=== PATIENT | male | born 1945 | race Caucasian/White ===

== ENCOUNTER 2018-07-05 01:54 | Outpatient (CLI) | payer MEDICARE, SELFPAY ==
[2018-07-05 10:51] LABS: Hemoglobin A1C 6.3 % (4.5-6.2)
[2018-07-05 11:19] LABS: BUN 18 mg/dL (7-18); CREATININE 1.21 mg/dL (0.70-1.30); Calcium 9.8 mg/dL (8.5-10.1); Chloride 101 mmol/L (98-107); Cholesterol 160 mg/dL (50-200); Estimated GFR 59.12 (mL/min/1.73m2); Glucose 108 mg/dL (70-100); HDL Cholesterol 39 mg/dL (40-60); LDL CHOLESTEROL 97 mg/dL (<100); Potassium 4.7 mmol/L (3.5-5.1); Sodium 140 mmol/L (136-145); Triglyceride 152 mg/dL (30-150)
== END 2018-07-05 02:14 ==
PROVIDERS: PCP Nurse Practitioner Family; Visit Provider Nurse Practitioner Family
DX: R73.01 Impaired fasting glucose (principal); E78.5 Hyperlipidemia, unspecified; E03.9 Hypothyroidism, unspecified; R73.09 Other abnormal glucose
CPT/HCPCS: 36415; 80048; 80061; 83721; 83036; 84443

== ENCOUNTER 2019-11-03 02:27 | Outpatient (CLI) | payer MEDICARE, OTHER, SELFPAY ==
[2019-11-03 07:55] LABS: Hemoglobin A1C 6.2 % (3.8-5.6)
[2019-11-03 08:57] LABS: ALT 36 U/L (16-63); AST 27 U/L (15-37); Albumin 4.2 g/dL (3.4-5.0); Alkaline Phosphatase 93 U/L (46-116); Anion Gap 10.2 mmol/L (3-11); BUN 21 mg/dL (7-18); Bilirubin, Total 0.5 mg/dL (0.2-1.0); CO2 26.8 mmol/L (21.0-32.0); CREATININE 1.07 mg/dL (0.70-1.30); Calcium 9.2 mg/dL (8.5-10.1); Calculated LDL 83 mg/dL (<100); Chloride 104 mmol/L (98-107); Cholesterol 139 mg/dL (<200); Glucose 114 mg/dL (74-106); HDL Cholesterol 34 mg/dL (40-60); Potassium 4.6 mmol/L (3.5-5.1); Sodium 141 mmol/L (136-145); TSH (W/Ref FT4) 2.59 uIU/mL (0.36-3.74); Total Protein 7.2 g/dL (6.4-8.2); Triglyceride 111 mg/dL (<150)
== END 2019-11-03 02:47 ==
PROVIDERS: PCP Nurse Practitioner Family; Visit Provider Nurse Practitioner Family
DX: R73.01 Impaired fasting glucose (principal); E03.9 Hypothyroidism, unspecified; Z13.1 Encounter for screening for diabetes mellitus; E78.5 Hyperlipidemia, unspecified
CPT/HCPCS: 36415; 80053; 80061; 83036; 84443

== ENCOUNTER 2020-11-22 03:25 | Outpatient (CLI) | payer MEDICARE, OTHER, SELFPAY ==
--- NOTE | 2020-11-22 08:15 | DI.MRI_ITS ---
Exam(s) MR LUMBAR SPINE WO EXAM: MR LUMBAR SPINE WO CLINICAL HISTORY: chronic R sciatica worse with new R foot drop,LUMBAR RADICULOPATHY,M54.16,. TECHNIQUE: Multiplanar multisequence MRI of the Lumbar spine was performed. COMPARISON: MR MRI - LUMBAR SPINE WO CONTRAST from 11/04/2016 FINDINGS: Bones: The last intervertebral disc space is designated the L5/S1 level for the numbering purpose of this examination. The vertebral body heights are well maintained. The patient has had a prior L2 a nd L3 laminectomy. Alignment is satisfactory. The signal characteristics are unremarkable. Cord: The conus tip ends at the T12 level. It is of normal size and signal intensity. T12-L1: No disc herniations or bulges are present. No central spinal canal or neural foraminal stenos is. L1-2: No disc herniations or bulges are present. There are hypertrophic changes of the facets. The f indings cause mild narrowing of the central spinal canal. No significant neural foraminal stenosis i s present. L2-3: There is a diffuse disc bulge. No significant central spinal canal stenosis is present. There is moderately severe bilateral neural foraminal stenosis. L3-4: There is a mild diffuse disc bulge. No significant central spinal canal stenosis is seen there is moderate right neural foraminal stenosis and moderate left neural foraminal stenosis. L4-5: There is a large right paracentral disc herniation with extrusion posterior to the L4 vertebral body. It causes right lateral recess stenosis compressing the right L4 nerve root. There are hyper trophic changes of the facets and ligamentum flavum. These also contribute to cause moderately sever e central spinal canal stenosis. There is mild bilateral neural foraminal stenosis. L5-S1: No focal disc herniation is seen. Mild degenerative changes of the facets are present. No si gnificant central spinal canal stenosis is seen. No neural foraminal stenosis is present. Soft tissues: The visualized SI joints and sacrum are well maintained. The paraspinal soft tissues ar e unremarkable. IMPRESSION: 1. Large right paracentral disc herniation at L4-L5 with extrusion posterior to the L4 vertebral body . It causes right lateral recess stenosis compressing the right L4 nerve root. 2. Degenerative changes and a disc herniation at L4-L5 which also contribute to cause moderately sondra re central spinal canal stenosis and mild bilateral neural foraminal stenosis. 3. Status post L2 and L3 laminectomies. 4. Multilevel degenerative changes in the lumbar spine causing central spinal canal and neural forami nal stenosis. Please refer to the above discussion for complete details. DATA REPOSITORY:
== END 2020-11-22 03:45 ==
PROVIDERS: PCP Nurse Practitioner Family; Visit Provider Nurse Practitioner Family
DX: M47.26 Other spondylosis with radiculopathy, lumbar region; M48.061 Spinal stenosis, lumbar region without neurogenic claudication; M51.16 Intervertebral disc disorders with radiculopathy, lumbar region; M21.371 Foot drop, right foot; M54.31 Sciatica, right side
CPT/HCPCS: 72148

== ENCOUNTER 2020-12-30 01:41 | Outpatient (CLI) | payer MEDICARE, OTHER, SELFPAY ==
[2020-12-30 08:56] LABS: Calculated LDL 57 mg/dL (<100); Cholesterol 141 mg/dL (<200); HDL Cholesterol 38 mg/dL (40-60); TSH (W/Ref FT4) 1.68 uIU/mL (0.36-3.74); Triglyceride 231 mg/dL (<150)
[2020-12-30 09:28] LABS: Hemoglobin A1C 6.2 % (<5.7)
== END 2020-12-30 01:42 | disposition home or self-care (01) ==
LOC: LBO 01:42
PROVIDERS: PCP Nurse Practitioner Family; Visit Provider Nurse Practitioner Family
DX: E78.5 Hyperlipidemia, unspecified (principal); E03.9 Hypothyroidism, unspecified; R73.01 Impaired fasting glucose
CPT/HCPCS: 36415; 80061; 83036; 84443

== ENCOUNTER 2022-01-29 03:47 | Outpatient (CLI) | payer MEDICARE, OTHER, SELFPAY ==
[2022-01-29 11:10] LABS: Anion Gap 7.3 mmol/L (3-11); BUN 17 mg/dL (7-18); CO2 29.7 mmol/L (21.0-32.0); CREATININE 1.1 mg/dL (0.70-1.30); Calcium 9.6 mg/dL (8.5-10.1); Calculated LDL 79 mg/dL (<100); Chloride 100 mmol/L (98-107); Cholesterol 140 mg/dL (<200); Estimated GFR 70.44 (mL/min/1.73m2); Glucose 108 mg/dL (74-106); HDL Cholesterol 43 mg/dL (40-60); Potassium 4.8 mmol/L (3.5-5.1); Sodium 137 mmol/L (136-145); TSH (W/Ref FT4) 3.63 uIU/mL (0.36-3.74); Triglyceride 92 mg/dL (<150)
== END 2022-01-29 03:48 | disposition home or self-care (01) ==
LOC: LBO 03:47
PROVIDERS: PCP Nurse Practitioner Family; Visit Provider Nurse Practitioner Family
DX: E78.5 Hyperlipidemia, unspecified (principal); E03.9 Hypothyroidism, unspecified; Z13.1 Encounter for screening for diabetes mellitus
CPT/HCPCS: 36415; 80048; 80061; 84443

== ENCOUNTER 2023-01-08 03:30 | Outpatient (CLI) | payer MEDICARE, SELFPAY ==
[2023-01-08 14:25] LABS: Hemoglobin A1C 6.3 % (<5.7)
[2023-01-08 14:29] LABS: Anion Gap 8.9 mmol/L (3-11); BUN 23 mg/dL (7-18); CO2 26.1 mmol/L (21.0-32.0); CREATININE 1.3 mg/dL (0.70-1.30); Calcium 9.7 mg/dL (8.5-10.1); Calculated LDL 80 mg/dL (<100); Chloride 97 mmol/L (98-107); Cholesterol 149 mg/dL (<200); Estimated GFR 57.29 (mL/min/1.73m2); Glucose 100 mg/dL (74-106); HDL Cholesterol 48 mg/dL (40-60); Potassium 4.4 mmol/L (3.5-5.1); Sodium 132 mmol/L (136-145); TSH (W/Ref FT4) 3.37 uIU/mL (0.36-3.74); Triglyceride 109 mg/dL (<150)
== END 2023-01-08 03:31 | disposition home or self-care (01) ==
LOC: LBO 03:30
PROVIDERS: Nurse Practitioner Adult Health; PCP Nurse Practitioner Family; Visit Provider Nurse Practitioner Family
DX: E03.9 Hypothyroidism, unspecified (principal); E78.5 Hyperlipidemia, unspecified; R73.01 Impaired fasting glucose
CPT/HCPCS: 36415; 80048; 80061; 83036; 84443

== ENCOUNTER 2023-04-04 16:09 | Emergency (ER) | payer MEDICARE, SELFPAY ==
[2023-04-04 16:17] VITALS: BP 184/68; PULSE 89; RESP 18; TEMP 37; O2SAT 97
--- NOTE | 2023-04-04 16:45 | DI.RAD_ITS ---
Exam(s) XR CHEST 2V PA LATERAL EXAM: XR CHEST 2V PA LATERAL CLINICAL HISTORY: cough. TECHNIQUE: 2D digital imaging was performed. COMPARISON: No exams were available for comparison FINDINGS: 2 views: Heart size is normal. The mediastinum is not widened. Lungs are clear. No infiltrates nor pleural effusions. IMPRESSION: No acute pulmonary findings. DATA REPOSITORY: RADIATION DOSE DELIVERED:
--- NOTE | 2023-04-04 17:23 | W.ED.GENAD ---
Discharge Plan Disposition Patient Disposition: Home Condition: Stable Discharge Details Clinical Impression: Upper respiratory infection Primary Care Provider: Shanta Snyder ED Provider: Josh Frausto Home Meds and New Rx's Prescriptions: Continued Jznb-Lmvq-Cyrtc (bn-ZR-wsnfgn) 400-2,000 mcg tablet 1 tab PO QDAY Co Q-10 300 MG capsule 300 mg PO DAILY atorvastatin 10 mg tablet 10 mg PO DAILY Qty: 90 3RF levothyroxine 75 mcg tablet 75 mcg PO DAILY Qty: 90 3RF Rx Instructions: Take at least 30-60 minutes before first meal of the day Discharge Instructions Instructions: Upper Respiratory Infection (ED) Additional Instructions: You were seen in the emergency department for your likely viral upper respiratory infection, your lungs are clear on chest x-ray, your COVID flu and RSV swab is negative. I have provided you with an inhaler to use 2 puffs 4 times per day for symptomatic relief of shortness of breath. Take an tsut-nor-rjkcykr decongestant like Mucinex. Please use therapeutic dosing of Tylenol (acetamenophen) & Advil (ibuprofen) in an alternating fashion as follows: Take 1000mg of Tylenol every 6 hours without missing doses- that is 4 times per day. [place] in between the Tylenol dosings, take 400-600mg of Advil also on a 6 hour schedule, that is also 4 times per day. The daily maximum dosing of Tylenol is 4000mg, and the daily maximum dosing of Advil is 2400mg. This is safe to do for weeks. Please note that some common cold medications & prescription pain medications may contain acetamenophen and you need to read OTC drug labels and factor that in to maximum daily dosings. If not better by day 10 of infection I think you should call your primary care provider or present to urgent care for empiric antibiotics of Augmentin and azithromycin for 5 days each at that time. Otherwise return to the emergency department for any signs of respiratory distress. Referrals: Shanta Snyder, ELECTRIC OPERATOR [Primary Care Provider] - Discharge Data Discharge Date/Time-TO BE ENTERED AT DEPARTURE: 04/04/23 17:50 Medical Decision Making This dictation utilizes vuycy-qm-ohzf dictation software and may contain unedited grammatical errors. 77 y/o M presents to ED today with a chief complaint of URI symptoms since Wednesday, cough, congestion, mild shortness of breath worse at night that got better with repositioning. Yellow sputum, tolerating PO intake. Patient is vaccinated for Covid-19. Patients' medical history: noncontributory, otherwise healthy. Family and social history: noncontributory. Pertinent exam findings / vital signs include lungs CTA, no hypoxia, no acute distress. Differential / pathologies of concern include viral syndrome, PNA. Diagnostic studies of: -Covid/Flu antigen- negative, CXR - no PNA. Interventions of: -albuterol inhaler w/ spacer for symptomatic treatment. ED Course/Assessment/Plan: 77-year-old male seen with upper respiratory infection, no focal pneumonia on chest x-ray, COVID flu negative, in no acute distress, I discussed wohm-fez-ekmeluj cold medicines for relief and provided albuterol for symptomatic relief, recommend PCP follow-up or urgent care visit for empiric antibiotics of Augmentin and azithromycin if still sick between 10 and 14 days after onset. Findings not consistent with hypoxemic respiratory failure, pneumonia, COVID, influenza. Disposition of Upper Respiratory Infection. Patient verbalized understanding of the plan and return to ED criteria and engaged in shared decision making. Medical Records Medical records reviewed: Yes I reviewed the patient's medical records. Imaging Data Radiologic Study: Imaging: X-Ray Radiologist's impression: EXAM: XR CHEST 2V PA LATERAL CLINICAL HISTORY: cough. TECHNIQUE: 2D digital imaging was performed. COMPARISON: No exams were available for comparison FINDINGS: 2 views: Heart size is normal. The mediastinum is not widened. Lungs are clear. No infiltrates nor pleural effusions. IMPRESSION: No acute pulmonary findings. Lab Data Lab results reviewed: Yes I reviewed the patient's lab results. Labs: Covid/Flu/RSV Negative HPI General Date/Time Provider Initiated Documentation: 04/04/23 16:28. HPI Narrative: 77 year-old male presents to ED today by POV/ambulating with his with a chief complaint of cough, congestion, shortness of breath worse at night, relief with repositioning with onset Wednesday. Quality described as generalized cough symptoms, productive with yellow sputum, no radiation to profound lethargy, respiratory distress, nausea/vomiting, endorses low-grade fevers. Severity is described as moderate. Palliating factors include nothing specific attempted. Provoking factors include nothing specific. Patient not anticoagulated. Related Data Home Medications Medication Instructions Recorded Confirmed coenzyme Q10 300 mg capsule (Co 300 mg PO DAILY 11/22/12 04/04/23 Q-10) multivitamin-folic acid 400 1 tab PO QDAY 10/16/19 04/04/23 mcg-biotin 2,000 mcg tablet (Ocsy-Xsfg-Ftwbk (clcqlbnb-wzapt-pqnlow)) atorvastatin 10 mg tablet 10 mg PO DAILY #90 tab-caps 05/13/22 04/04/23 levothyroxine 75 mcg tablet 75 mcg PO DAILY #90 tab-caps 05/13/22 04/04/23 Previous Rx's Medication Instructions Recorded atorvastatin 10 mg tablet 10 mg PO DAILY #90 tab-caps 05/13/22 levothyroxine 75 mcg tablet 75 mcg PO DAILY #90 tab-caps 05/13/22 Allergies Allergy/AdvReac Type Severity Reaction Status Date / Time Sulfa (Sulfonamide AdvReac Unknown Unverified 04/04/23 16:22 Antibiotics) General Stated Complaint: RespSymp KAREN: 3 Review of Systems All systems reviewed & are unremarkable except as noted in HPI and below PFSH All Active Problems (Updated 04/04/23 @ 17:25 by OLIVIA Khan) Upper respiratory infection (Acute) Decreased range of motion of neck (Acute ~01/2023) Hyponatremia (Acute ~01/2023) Metabolic syndrome (Chronic) Hyperlipidemia, unspecified (Chronic) 06/2018 labs: good response to moderate potency statin, continue Abnormal ECG (Chronic 09/28/11) intraventricular conduction abnl on EKG Hypothyroidism (Chronic 08/20/10) DX 08/2010, HUGE IMPROVEMENT WITH RX IN ENERGY Lumbar stenosis (Chronic 12/31/16) Pain and spine note 01/16/21: Spinal stenosis of lumbar region with neurogenic claudication Migraine (Chronic 09/28/11) OCC IBUPROFEN; CAFFEINE H/A IFG (impaired fasting glucose) (Chronic) Medical History Adenoma of large intestine (12/12/11) tubular adenoma Lumbar disc herniation with radiculopathy 11/22/2020 MRI: L4-5 with L4 nerve root compression Lumbar radiculopathy, chronic Tobacco use disorder (02/15/17) Surgical History Arthroplasty of knee (11/13/05) L KNEE DREISBACH H/O laminectomy (~12/18/20) 12/18/20 L4-L5 laminectomy with right diskectomy laminectomy (03/09/17) L2-4 [facility] [place] Family History Mother , Failure to thrive at age 92. Diabetes Resolved with LSMs Father , CVA Dementia Heart disease h/o [place], CABG Myocardial infarction Stroke Sister Age: 74 Obese Social History Smoking/Tobacco Use Status: Former Tobacco Use tobacco type: cigarettes Quit Date: 04/12/71 Smoking risk assessment performed?: Yes Alcohol Intake: current Alcohol Intake frequency: holidays/special occasions only Drug use: Never Substance use type: does not use Counseling given: No Adopted: No Caregiver/Support person: No Foster care: No Household members: spouse Housing: house Number of Children: 2 number of grandchildren: 4 Communication Needs: None and Corrective Lenses Education Level: college Details: Bachelors Do you need help understanding health information?: Never current occupation: Retired Nurse Pets and animals: No Sexually active: Yes Do you think of yourself as: straight/heterosexual Current gender identity: male What is your relationship status?: How often do you talk on the phone with friends or family?: three or more times per week How often do you get together with friends or relatives?: decline to answer Do you belong to any clubs or organized social groups?: no Panel score (0-1 are the most socially isolated patients): 2 What type of physical activity do you participate in: walking, bicycling and other Details: Active during day, skiing, isometric Duration: 15-30 minutes/day Frequency: 3-4 times per week Jerrica/Yarsanism: Faith Seatbelt use: always Helmet use: Yes Drive intox or ride w/intox dedicated regional driver: No Water heater temp set <120 deg: Yes Working smoke detector in home: Yes Fire extinguisher in home: Yes Carbon monox detector in home: Yes Firearms in home: Yes Firearms unloaded and locked: Yes Do you feel safe at home: Yes Do you feel safe in your relationship?: Yes Victim of physical abuse: No Victim of emotional abuse: No Victim of sexual abuse: No Exam Narrative Exam Narrative: GENERAL APPEARANCE: Well-nourished, non-toxic, awake and alert, atraumatic, no acute distress. SKIN: Warm, pink, dry, intact, without rashes/lesions/ulcerations. HEAD: Normocephalic, atraumatic, normal hair distribution for gender/age. EYES: Pupils PERRLA, EOMs intact without nystagmus, normal conjunctiva, no exudates on lids/lashes. ENT: Nares patent, no circumoral cyanosis, no facial swelling NECK: Supple, trachea midline, painless cervical ROM. LUNGS/CHEST: Lungs CTA bilaterally- no rhonchi/rales/wheezes diffusely, non-labored respirations, normal A/P diameter, symmetrical expansion, no chest wall deformity HEART (CV/PV): Regular rate and rhythm without murmur, no peripheral edema, no JVD. ABDOMEN: Soft, non-distended, no guarding, no tenderness. MSK: Normal ROM, no swelling/deformity to bilateral UEs or LEs, moving all extremities without weakness, no cyanosis, spine midline without tenderness, normal curvature. NEURO: Mental Status AAOx4 - alert to person, place, time, events No facial droop, no forehead involvement. Motor: No focal weakness - strength 5/5 in bilateral UEs and LEs, proximal and distal, symmetric. Sensory: sensation intact to light touch globally. Gait normal: patient ambulated without ataxia into ED room. PSYCH: euthymic, cooperative, pleasant, appropriate speech Course 04/04/23 16:52 XR chest 2V PA & lateral [RAD] Stat 04/04/23 17:27 Albuterol [Ventolin Hfa] 2 puff IH DISPENSE ONE 04/04/23 18:00 Inhaler, Assist Devices [Pocket Chamber] 1 each MC DIRECTED And Covid/Flu POC neg Vital Signs Vital signs: Vital Signs Temperature 37 C 04/04/23 16:17 Pulse 89 04/04/23 16:17 Respiratory Rate 18 04/04/23 16:17 Blood Pressure 184/68 H 04/04/23 16:17 Pulse Oximetry 97 04/04/23 16:17 Temperature 37 C 04/04/23 16:17 Temperature Source Skin 04/04/23 16:17 Pulse 89 04/04/23 16:17 Respiratory Rate 18 04/04/23 16:17 Respiratory Effort Labored 04/04/23 16:26 Respiratory Depth Deep 04/04/23 16:23 Blood Pressure 184/68 H 04/04/23 16:17 Blood Pressure Position Sitting 04/04/23 16:17 Pulse Oximetry 97 04/04/23 16:17 Oxygen Delivery Method Room Air 04/04/23 16:17 Oxygen Flow Rate 0 04/04/23 16:17 Pain Level 7 04/04/23 16:17 PAWSS Have you Been Recently Intoxicated or Drunk Within the Last 30 days?: No Have you Ever Experienced Previous Episodes of Alcohol Withdrawal?: No Have you ever Experienced Withdrawal Seizures?: No Have you ever Experienced Delirium Tremens(DT)s?: No Have you ever undergone Alcohol Rehabilitation Treatment (i.e, inpt ot outpatient treatment programs)?: No Have you ever Experienced Blackouts?: No Have you ever Combined Alcohol with other Downers within the last 90 days?: No Have you ever Combined Alcohol with any other Substance of Abuse during the last 90 days?: No Positive Blood Alcohol level on Presentation? [PCS.BAL]: No Evidence of Increased Autonomic Activity (i.e. HR>120, tremor, sweating, agitation, nausea)?: No Result: 0
--- NOTE | 2023-04-04 17:46 | DI.VRAD_ITS ---
PROCEDURE INFORMATION: Exam: XR Chest Exam date and time: 04/04/2023 5:17 PM Age: 77 years old Clinical indication: Cough TECHNIQUE: Imaging protocol: Radiologic exam of the chest. Views: 2 views. COMPARISON: No relevant prior studies available. FINDINGS: Lungs: Reticular markings at the right and left lung base may represent atelectasis, scar, or developing infiltrate. There are no comparison. Pleural spaces: Unremarkable. No pleural effusion. No pneumothorax. Heart/Mediastinum: Unremarkable. No cardiomegaly. Bones/joints: Degenerative changes of the spine. IMPRESSION: Bibasilar reticular markings consistent developing infiltrate, scar, or atelectasis. Dictated and Authenticated by: Rose Casper MD. Ordering:CATHI Moreno MD
[2023-04-04] MEDS: Albuterol HFA 8 GM 60 PUFF INH IH (17:47)
[2023-04-04] MEDS: Inhaler, Assist Device 1 EACH MC (17:48)
== END 2023-04-04 17:50 | disposition home or self-care (01) ==
PROVIDERS: Emergency Provider Physician Assistant; PCP Nurse Practitioner Adult Health
DX: J06.9 Acute upper respiratory infection, unspecified (principal); Z11.52 Encounter for screening for COVID-19
CPT/HCPCS: 87426; 99283; 71046

== ENCOUNTER 2023-07-08 05:15 | Outpatient (CLI) | payer MEDICARE, SELFPAY ==
[2023-07-08 15:24] LABS: Anion Gap 9.9 mmol/L (3-11); BUN 20 mg/dL (7-18); CO2 29.1 mmol/L (21.0-32.0); CREATININE 1.1 mg/dL (0.70-1.30); Calcium 9.1 mg/dL (8.5-10.1); Chloride 100 mmol/L (98-107); Estimated GFR 69.57 (mL/min/1.73m2); Glucose 92 mg/dL (74-106); Sodium 139 mmol/L (136-145)
== END 2023-07-08 05:16 | disposition home or self-care (01) ==
PROVIDERS: PCP Nurse Practitioner Adult Health; Visit Provider Nurse Practitioner Adult Health
DX: E87.1 Hypo-osmolality and hyponatremia (principal)
CPT/HCPCS: 36415; 80048

== ENCOUNTER 2023-10-11 12:06 | Outpatient (REF) | payer MEDICARE, SELFPAY ==
[2023-10-11 12:23] LABS: Abs Immature Grans 0.04 10^3/uL (0.0-0.06); Absolute Basophil Count 0.03 10^3/uL (0.0-0.2); Absolute Eosinophil Count 0.02 10^3/uL (0.0-0.7); Absolute Lymphocyte Count 1.19 10^3/uL (1.2-3.4); Absolute Monocyte Count 1.12 10^3/uL (0.1-0.8); Absolute Neutrophil Count 7.51 10^3/uL (1.2-6.7); Basophils % 0.3 %; Eosinophils % 0.2 %; HGB 13.7 g/dL (13.5-17.5); Immature Grans % 0.4 %; MCH 31.4 pg (27.0-33.0); MCHC 35.1 % (32.0-36.0); MCV 89 fL (80-95); MPV 8.6 fL (8.0-11.0); Monocytes % 11.3 %; Neutrophils % 75.8 %; Platelet Count 293 10^3/uL (130-400); RBC 4.37 10^6/uL (4.36-5.78); RDW 12.5 % (11.8-14.1); RDW-SD 41.5 fL; WBC 9.91 10^3/uL (4.4-10.8)
[2023-10-11 12:26] LABS: ESR 29 mm/hr (0-20)
[2023-10-11 13:14] LABS: ALT 30 U/L (16-63); AST 22 U/L (15-37); Albumin 4.2 g/dL (3.4-5.0); Alkaline Phosphatase 98 U/L (46-116); Anion Gap 11.3 mmol/L (3-11); BUN 14 mg/dL (7-18); Bilirubin, Total 0.89 mg/dL (0.2-1.0); CO2 25.7 mmol/L (21.0-32.0); CREATININE 0.9 mg/dL (0.70-1.30); Calcium 9.3 mg/dL (8.5-10.1); Chloride 96 mmol/L (98-107); Estimated GFR 88.51 (mL/min/1.73m2); Glucose 99 mg/dL (74-106); Magnesium 2.1 mg/dL (1.8-2.4); Potassium 4.9 mmol/L (3.5-5.1); Sodium 133 mmol/L (136-145); TSH (W/Ref FT4) 1.97 uIU/mL (0.36-3.74); Total Protein 7.5 g/dL (6.4-8.2); Vitamin B12 532 pg/mL (193-986)
[2023-10-12 09:54] LABS: Lyme Ab w Rflx to Lyme Confirm Negative (Negative)
[2023-10-14 09:18] LABS: Anaplasma phagocytophilum Negative (Negative); B. miyamotoi PCR Negative (Negative); Babesia divergens/MO-1 Negative (Negative); Babesia duncani Negative (Negative); Babesia microti Negative (Negative); Ehrlichia chaffeensis Negative (Negative); Ehrlichia ewingii/canis Negative (Negative); Ehrlichia muris eauclairensis Negative (Negative)
== END 2023-10-11 12:07 | disposition home or self-care (01) ==
LOC: LBN 12:06
PROVIDERS: PCP Nurse Practitioner Adult Health; Visit Provider Nurse Practitioner Adult Health
DX: R53.1 Weakness (principal); R41.82 Altered mental status, unspecified; R26.89 Other abnormalities of gait and mobility
CPT/HCPCS: 80053; 85652; 87798; 82607; 83735; 84443; 85025; 86618

== ENCOUNTER 2023-10-11 13:36 | Emergency (ER) | payer MEDICARE, SELFPAY ==
[2023-10-11] VITALS (62 sets, daily range): BP systolic 126–184; BP diastolic 47–87; PULSE 52–147; RESP 11–22; TEMP 36–36.9; O2SAT 95–97
--- NOTE | 2023-10-11 13:30 | RT.EKG_ITS ---
APPROVED REPORT Exam: Resting ECG Reason for Exam: weakness Patient Location: E HR:56 bpm ECG Measurements Heart Rate 56 AXIS MD 153 P 74 QRSd 94 QRS 76 QT 417 T 51 QTc 404 Conclusion Sinus bradycardia. 56 no stemi
[2023-10-11] MEDS: Normal Saline 1,000 ML 1000 ML IV (14:23)
--- NOTE | 2023-10-11 14:43 | DI.CT_ITS ---
Exam(s) CT HEAD WO EXAM: CT HEAD WO CLINICAL HISTORY: weakness. TECHNIQUE: Imaging Protocol: Axial computed tomography images with coronal and sagittal reformatted images were created and reviewed COMPARISON: No exams were available for comparison FINDINGS: Ventricles and Extra axial spaces: Normal in size and morphology for the patient's age. Hemorrhage: None. Cerebral parenchyma: There is a large area of edema involving the right temporal lobe and right parie evelina lobe. There is effacement of the right lateral ventricle, the right temporal and occipital horns . There is a leftward midline shift of 1.2 cm.. Midline shift: None. Brainstem/Cerebellum: Normal. Calvarium: Normal. Visualized Paranasal sinuses/Mastoids: Clear. Soft Tissues: Unremarkable. IMPRESSION: 1. Large area of decreased attenuation in the right temporal and right parietal lobes with a 1.2 cm r ight to left midline shift and effacement of the sulci and the right ventricular system. Primary con cern is for an intra cranial mass such as a glial tumor or metastatic disease. Acute infarct should also be considered. An MRI of the brain without and with contrast is recommended for further evaluat ion. 2. Findings were discussed with Tim Singh at 2:50 p.m. on 10/11/2023. RADIATION DOSE DELIVERED: Total DLP DATA REPOSITORY: All CT scans at this facility are submitted to the National Radiology Data Registry (NRDR) Dose Index Registry (DIR) with the [employer] (ACR). RADIATION OPTIMIZATION: All CT scans at this facility use at least one of these dose optimization te chniques: automated exposure control; mA and/or kV adjustment per patient size (includes targeted exa ms where dose is matched to clinical indication); or iterative reconstruction.
--- NOTE | 2023-10-11 14:45 | DI.MRI_ITS ---
Exam(s) MR BRAIN WO/W EXAM: MR BRAIN WO/W CLINICAL HISTORY: weakness and abnormal CT. TECHNIQUE: Multiplanar multisequence MRI of the brain was performed. CONTRAST MATERIAL: IV Contrast: 16 ML of Dotarem contrast administered. COMPARISON: CT CT HEAD WO from 10/11/2023 FINDINGS: There is patient motion artifact. VENTRICLES AND EXTRA AXIAL SPACES: There is a face mint of the sulci and the right lateral ventricle secondary to the right mass as described below under cerebral parenchyma. HEMORRHAGE: None. CEREBRAL PARENCHYMA: There is a 7.4 AP by 5.8 transverse by 4.8 craniocaudad cm cm mass centered in t he right temporal lobe. It shows heterogeneous enhancement following contrast administration. Areas of hypointense signal are seen on the gradient images consistent with prior hemorrhage. There is a large amount of vasogenic edema surrounding the lesion. There is effacement of the adjacent sulci an d the right lateral ventricle including the temporal and occipital lobes. There is a 1.2 cm right to left midline shift. Enhancement appears to extend into the right occipital horn of the lateral vent ricle and the temporal horn of the right lateral ventricle. There are scattered foci of hyperintense signal seen in the white matter on the T2 and FLAIR images most consistent with chronic microvascula r ischemic disease. MIDLINE SHIFT: 1.2 cm right to left midline shift is present secondary to the mass. BRAINSTEM/CEREBELLUM: Normal. CALVARIUM: Normal. ENHANCEMENT: Please see under cerebral parenchyma. VISUALIZED PARANASAL SINUSES/MASTOIDS: Clear. OTHER FINDINGS: None. IMPRESSION: 1. Heterogeneously enhancing mass in the right temporal lobe with vasogenic edema and causing sulcal and ventricular effacement with a 1.2 cm right to left midline shift. 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 Metastasis or infection are considered less likely. 2. Findings were discussed with Tim Singh at 4:10 p.m. on 10/11/2023. DATA REPOSITORY:
[2023-10-11 15:05] LABS: COVID-19 PCR Negative (Negative); Influenza A PCR Negative (Negative); Influenza B PCR Negative (Negative); RSV PCR Negative (Negative)
[2023-10-11 15:07] LABS: Source Nasopharynx
--- NOTE | 2023-10-11 15:07 | W.ED.GENAD ---
Discharge Plan Discharge Details Chief Complaint: GenMedical Primary Care Provider: Shanta Snyder ED Provider: Tim Singh Home Meds and New Rx's Prescriptions: No Action Zqzr-Pnkf-Ngzdx (ph-DI-clfxot) 400-2,000 mcg tablet 1 tab PO QDAY Co Q-10 300 MG capsule 300 mg PO DAILY atorvastatin 10 mg tablet 10 mg PO DAILY Qty: 90 3RF levothyroxine 75 mcg tablet 75 mcg PO DAILY Qty: 90 3RF Rx Instructions: Take at least 30-60 minutes before first meal of the day HPI General Mode of arrival: wheelchair. Date/Time Provider Initiated Documentation: 10/11/23 13:48. Limitations to Documentation: no limitations. Information obtained by: patient and family. History of Present Illness 78 year old M presents to the emergency department with the chief complaint of General generalized weakness, difficulty urinating, described as moderate, Patient started experiencing this unknown and it has been constant. No relieving factors improve symptom(s), No exacerbating factors reported . Patient notes no other symptoms.. Patient did receive the following treatments prior to arrival, other (Acetaminophen) Related Data Home Medications Medication Instructions Recorded Confirmed coenzyme Q10 300 mg capsule (Co 300 mg PO DAILY 11/22/12 10/11/23 Q-10) multivitamin-folic acid 400 1 tab PO QDAY 10/16/19 10/11/23 mcg-biotin 2,000 mcg tablet (Neqd-Sazf-Yeaub (ycfrpfia-aqfzj-rmxmti)) atorvastatin 10 mg tablet 10 mg PO DAILY #90 tab-caps 05/17/23 10/11/23 levothyroxine 75 mcg tablet 75 mcg PO DAILY #90 tab-caps 05/17/23 10/11/23 Previous Rx's Medication Instructions Recorded atorvastatin 10 mg tablet 10 mg PO DAILY #90 tab-caps 05/17/23 levothyroxine 75 mcg tablet 75 mcg PO DAILY #90 tab-caps 05/17/23 Allergies Allergy/AdvReac Type Severity Reaction Status Date / Time Sulfa (Sulfonamide AdvReac Unknown Other (See Unverified 10/11/23 10:56 Antibiotics) Comment) General Stated Complaint: GenMedical KAREN: 3 Review of Systems Constitutional Constitutional: Denies chills, Denies fever(s) and Reports weakness Cardiovascular Cardiovascular: Denies chest pain, Denies syncope and Denies dyspnea Respiratory Respiratory: Denies dyspnea Gastrointestinal Gastrointestinal: Denies abdominal pain and Denies nausea Genitourinary Genitourinary: Reports difficulty urinating Neurologic Neurologic: Denies confusion, Denies syncope, Denies other visual disturbances, Denies paresthesias and Reports weakness Psychiatric Psychiatric: Denies confusion Exam Const General: cooperative, no acute distress and well groomed Orientation: alert, awake and oriented x3 HENMT Head: normal to inspection Ears: hearing grossly normal bilaterally Mouth: oral mucosae normal and moist mucous membranes Throat: posterior oropharynx normal Eyes Visual Vieyra: normal visual vieyra by confrontation Alignment and Position: alignment normal Periorbital: periorbital findings normal Eyelids: eyelids normal Sclera: sclerae normal Pupils: PERRL EOM: EOM intact bilaterally Neck Neck: normal visual inspection, full ROM, no lymphadenopathy and no meningeal signs Resp Effort & Inspection: normal respiratory effort and able to speak in complete sentences Auscultation: clear to auscultation bilaterally Cardio Rate: regular rate Rhythm: regular rhythm Heart Sounds: S1 normal and S2 normal Neuro General: patient alert, patient awake, patient oriented x3, gait normal, tone normal, moves all extremities, CN's II-XI intact bilaterally and not confused Cognition: normal cognition Speech: speech normal Motor: muscle tone normal throughout, no movement abnormalities noted, no fasciculations, tremor left upper extremity and pronator drift pronator drift of left upper extremity Sensory Exam: no sensory deficits noted Coordination: Does not sway with eyes open Course Vital Signs Vital signs: Vital Signs Temperature 36.0 C L 10/11/23 13:40 Pulse 58 L 10/11/23 13:40 Respiratory Rate 18 10/11/23 13:40 Blood Pressure 135/69 10/11/23 13:40 Pulse Oximetry 97 10/11/23 13:40 Temperature 36.0 C L 10/11/23 13:55 Temperature Source Temporal Artery Scan 10/11/23 13:55 Pulse 58 L 10/11/23 13:55 Respiratory Rate 17 10/11/23 13:55 Respiratory Effort Normal 10/11/23 13:55 Blood Pressure 135/69 10/11/23 13:55 Blood Pressure Position Sitting 10/11/23 13:55 Pulse Oximetry 97 10/11/23 13:55 Oxygen Delivery Method Room Air 10/11/23 13:55 Oxygen Flow Rate 0 10/11/23 13:55 Medical Decision Making Patient presenting to the emergency department after referral from primary care provider for generalized weakness and difficulty urinating. Significant other states that patient woke up weak this morning and that she did have patient drink some Gatorade which seem to help with symptoms but then continued to have weakness throughout the day. She does report that patient has had a headache intermittently for the past couple days which Tylenol has seemed to resolve symptoms. Significant other does state mild head trauma of patient hitting his head slightly on the door of the pickup truck greater than a week ago but denies any loss of consciousness nausea vomiting or other symptoms. Patient is not on any blood thinners. Patient does have history of chronic low back pain, intestinal adenoma, migraines. Physical exam shows no obvious cranial nerve findings, mild weakness noted to left upper and lower extremity but no full drift and no complete loss of strength, sensation intact bilateral, normal cardiac and respiratory exam. Reviewed labs from primary care office which were performed just prior to arrival and no emergent findings were noted on CBC CMP B vitamins and thyroid. We will order urinalysis, COVID, and head CT imaging. Pending results will give IV fluids given that stated that that seemed to help patient's condition earlier. Patient is negative for COVID flu and RSV, did speak to radiologist who states significant right-sided findings on CT imaging with concern for CVA versus large mass. Radiology requesting MRI brain with and without for further evaluation which I feel is more than reasonable. Spoke to radiologist who states that there is a significant mass measuring 7 cm x 6 cm x 5 cm and probably consistent with a glioblastoma. Imaging Data Radiologic Study: Imaging: CT Scan Radiologist's impression: Exam(s) a CT:CT head wo Exam(s) CT HEAD WO EXAM: CT HEAD WO CLINICAL HISTORY: weakness. TECHNIQUE: Imaging Protocol: Axial computed tomography images with coronal and sagittal reformatted images were created and reviewed COMPARISON: No exams were available for comparison FINDINGS: Ventricles and Extra axial spaces: Normal in size and morphology for the patient's age. Hemorrhage: None. Cerebral parenchyma: There is a large area of edema involving the right temporal lobe and right parietal lobe. There is effacement of the right lateral ventricle, the right temporal and occipital horns. There is a leftward midline shift of 1.2 cm.. Midline shift: None. Brainstem/Cerebellum: Normal. Calvarium: Normal. Visualized Paranasal sinuses/Mastoids: Clear. Soft Tissues: Unremarkable. IMPRESSION: 1. Large area of decreased attenuation in the right temporal and right parietal lobes with a 1.2 cm right to left midline shift and effacement of the sulci and the right ventricular system. Primary concern is for an intra cranial mass such as a glial tumor or metastatic disease. Acute infarct should also be considered. An MRI of the brain without and with contrast is recommended for further evaluation. 2. Findings were discussed with Tim Singh at 2:50 p.m. on 10/11/2023. Lab Data Lab results reviewed: Yes I reviewed the patient's lab results. Quality:SDOH Health Related Social Needs: No Data to Display PFSH All Active Problems Decreased range of motion of neck (Acute ~01/2023) Metabolic syndrome (Chronic) Hyperlipidemia, unspecified (Chronic) 06/2018 labs: good response to moderate potency statin, continue Abnormal ECG (Chronic 09/28/11) intraventricular conduction abnl on EKG Hypothyroidism (Chronic 08/20/10) DX 08/2010, HUGE IMPROVEMENT WITH RX IN ENERGY Lumbar stenosis (Chronic 12/31/16) Pain and spine note 01/16/21: Spinal stenosis of lumbar region with neurogenic claudication IFG (impaired fasting glucose) (Chronic) Medical History Hyponatremia (~01/2023) Migraine (09/28/11) OCC IBUPROFEN; CAFFEINE H/A 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 Diabetes Resolved with LSMs Father , CVA Dementia Heart disease h/o [place], CABG Myocardial infarction Stroke Sister Age: 75 Obese Social History Smoking/Tobacco Use Status: Former Tobacco Use tobacco type: cigarettes Quit Date: 04/12/71 Quit status: quit date established Smoking risk assessment performed?: Yes Alcohol Intake: current Alcohol Intake frequency: holidays/special occasions only Drug use: Never Substance use type: does not use Counseling given: No Adopted: No Caregiver/Support person: No Foster care: No Household members: spouse Housing: house Number of Children: 2 number of grandchildren: 4 Communication Needs: Corrective Lenses Education Level: college Details: Bachelors Do you need help understanding health information?: Never current occupation: Retired Nurse Pets and animals: No Sexually active: Yes Do you think of yourself as: straight/heterosexual Current gender identity: male What is your relationship status?: How often do you talk on the phone with friends or family?: three or more times per week How often do you get together with friends or relatives?: once per week How often do you attend adventism or mandaen services?: 1-3 times per year Do you belong to any clubs or organized social groups?: no Panel score (0-1 are the most socially isolated patients): 2 What type of physical activity do you participate in: walking, bicycling and other Details: Active during day, skiing, isometric Duration: 60-90 minutes/day Frequency: daily Jerrica/Oriental Orthodox: Spiritism Seatbelt use: always Helmet use: Yes Helmet use: always Drive intox or ride w/intox utility driver: No Water heater temp set <120 deg: Yes Working smoke detector in home: Yes Fire extinguisher in home: Yes Carbon monox detector in home: Yes Firearms in home: Yes Firearms unloaded and locked: Yes Do you feel safe at home: Yes Do you feel safe in your relationship?: Yes Victim of physical abuse: No Victim of emotional abuse: No Victim of sexual abuse: No Sign Out Sign Out Data: Sign Out Comment: Patient signed out pending consult for new finding of large mass as described by radiology. Patient in stable condition at time of signout. Last updated by Tim Singh NP at 10/11/23 16:18
[2023-10-11] MEDS: Gadoterate meglumine 20 ML VIAL IVP (15:51)
--- NOTE | 2023-10-11 16:24 | ED.PROG_ITS ---
Date of service: 10/11/23 Time of Service: 16:24 Medical Decision Making This dictation utilizes [id number]-hu-zmgt dictation software and may contain unedited grammatical errors. Patient seen in sign-out from Tim Singh NP- please see his complete note. Essentially this 78 y/o M presents to ED today with a chief complaint of difficulty walking, weakness, and some urinary retention today- PCP office questioned UTI- patient presented to ED for evaluation. Patient was found to have a large brain mass on imaging- CT and MRI, [id number] likely glioblastoma. Pending [facility] [place]. Patients' medical history: Migraine, hyponatremia, lumbar radiculopathy. Family and social history: recently vacationed to [place], eats well, exercises. Pertinent exam findings / vital signs include tremulous movements of upper extremities with mild diffuse coordination deficits, very unsteady gait, assisted by 2 RNs and myself to even stand at bedside, barely able to take 1 step with assistance, difficulty following commands. Differential / pathologies of concern include brain mass, glioblastoma. Diagnostic studies of: -Reviewed patient's imaging shows large brain mass with midline shift. Interventions of: -Consult [facility] [place] neurosurgery Dr. Pinzon at 1800-accepted to neurosurgery for bed with failure of ambulatory trial, await bed assignment. ED Course/Assessment/Plan: 78-year-old male presents with a large right-sided brain mass likely a glioblastoma. Patient will be admitted and transferred to [facility] at the service of neurosurgery, I am hopeful that he is a good surgical candidate as he is fairly active and has no other complex comorbidities, in discussion with his she has noticed some mild decline over the past 3 weeks but has gotten markedly worse in the past 24 hours- patient's feels it is unsafe for him to be at home due to fall risk, he is having extreme difficulty with any coordination and ambulation here in the emergency department. I did discuss the case with [facility] [place] Dr. Pinzon of neurosurgery, he will accept the patient for floor bed. 2230 - EMS crew arrived for transport- patient had been calm and resting throughout visit- but was significantly altered from earlier in the day- stating he thinks he is at his home in [place] on the [place] por with tangential speech. I will re-consult [facility] [place] Neurosurgery for recommendations of performing repeat CT here vs transport and getting one on arrival. [facility] radiologist reported that no significant change in shift- will send by ALS for seizure intervention PRN. Disposition of Brain Mass. Patient verbalized understanding of the plan and return to ED criteria and engaged in shared decision making. Medical Records Medical records reviewed: Yes I reviewed the patient's medical records. Imaging Data Radiologic Study: Attestation: I personally reviewed and interpreted this imaging study as follows: Imaging: CT Scan Radiologist's impression: EXAM: CT HEAD WO CLINICAL HISTORY: weakness. TECHNIQUE: Imaging Protocol: Axial computed tomography images with coronal and sagittal reformatted images were created and reviewed COMPARISON: No exams were available for comparison FINDINGS: Ventricles and Extra axial spaces: Normal in size and morphology for the patient's age. Hemorrhage: None. Cerebral parenchyma: There is a large area of edema involving the right temporal lobe and right parietal lobe. There is effacement of the right lateral ventr icle, the right temporal and occipital horns. There is a leftward midline shift of 1.2 cm.. Midline shift: None. Brainstem/Cerebellum: Normal. Calvarium: Normal. Visualized Paranasal sinuses/Mastoids: Clear. Soft Tissues: Unremarkable. IMPRESSION: 1. Large area of decreased attenuation in the right temporal and right parietal lobes with a 1.2 cm right to left midline shift and effacement of the sulci and the right ventricular system. Primary concern is for an intra cranial mass such as a glial tumor or metastatic disease. Acute infarct should also be considered. An MRI of the brain without and with contrast is recommended for further evaluation. 2. Findings were discussed with Tim Singh at 2:50 p.m. on 10/11/2023. Radiologic Study #2: Attestation: I personally reviewed and interpreted this imaging study as follows: Imaging: MRI Radiologist's impression: EXAM: MR BRAIN WO/W CLINICAL HISTORY: weakness and abnormal CT. TECHNIQUE: Multiplanar multisequence MRI of the brain was performed. CONTRAST MATERIAL: IV Contrast: 16 ML of Dotarem contrast administered. COMPARISON: CT CT HEAD WO from 10/11/2023 FINDINGS: There is patient motion artifact. VENTRICLES AND EXTRA AXIAL SPACES: There is a face mint of the sulci and the right lateral ventricle secondary to the right mass as described below under cerebral parenchyma. HEMORRHAGE: None. CEREBRAL PARENCHYMA: There is a 7.4 AP by 5.8 transverse by 4.8 craniocaudad cm cm mass centered in the right temporal lobe. It shows heterogeneous enhancement following contrast administration. Areas of hypointense signal are seen on the gradient images consistent with prior hemorrhage. There is a large amount of vasogenic edema surrounding the lesion. There is effacement of the adjacent sulci and the right lateral ventricle including the temporal and occipital lobes. There is a 1.2 cm right to left midline shift. Enhancement appears to extend into the right occipital horn of the lateral ventricle and the temporal horn of the right lateral ventricle. There are scattered foci of hyperintense signal seen in the white matter on the T2 and FLAIR images most consistent with chronic microvascular ischemic disease. MIDLINE SHIFT: 1.2 cm right to left midline shift is present secondary to the mass. BRAINSTEM/CEREBELLUM: Normal. CALVARIUM: Normal. ENHANCEMENT: Please see under cerebral parenchyma. VISUALIZED PARANASAL SINUSES/MASTOIDS: Clear. OTHER FINDINGS: None. IMPRESSION: 1. Heterogeneously enhancing mass in the right temporal lobe with vasogenic edema and causing sulcal and ventricular effacement with a 1.2 cm right to left midline shift. 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 Metastasis or infection are considered less likely. 2. Findings were discussed with Tim Singh at 4:10 p.m. on 10/11/2023. Radiologic Study #3: Attestation: I personally reviewed and interpreted this imaging study as follows: Imaging: CT Scan Radiologist's impression: Exam(s) Addendum created by Latrell Ware MD on 10/11/2023 11:25:48 PM EDT: Findings were discussed with JOSH VILLANUEVA at 10/11/2023 11:25 PM EDT. Initial report created on 10/11/2023 11:20:05 PM EDT: PROCEDURE INFORMATION: Exam: CT Head Without Contrast Exam date and time: 10/11/2023 10:56 PM Age: 78 years old Clinical indication: Altered mental status/memory loss; Confusion or disorientation; Patient HX: Repeat mental status change during stay, repeat head CT TECHNIQUE: Imaging protocol: Computed tomography of the head without contrast. Radiation optimization: All CT scans at this facility use at least one of these dose optimization techniques: automated exposure control; mA and/or kV adjustment per patient size (includes targeted exams where dose is matched to clinical indication); or iterative reconstruction. COMPARISON: MR BRAIN WO/W 10/11/2023 3:32 PM FINDINGS: Brain: Stable appearance of prominent vasogenic edema in the right cerebral hemisphere producing approximately 11 mm jfdpb-vt-vliz midline shift. Known underlying mass lesion poorly demonstrated on this noncontrast CT. No acute intracranial hemorrhage or evidence of acute ischemia. Cerebral ventricles: No ventriculomegaly. Paranasal sinuses: Visualized sinuses are unremarkable. No fluid levels. Mastoid air cells: Visualized mastoid air cells are well aerated. Bones: Unremarkable. No acute fracture. Soft tissues: Unremarkable. IMPRESSION: Stable findings of significant vasogenic edema in the right cerebrum producing approximately 11 mm wcxkb-ri-nfhb midline shift. No significant change compared to the study of approximately 8 hours previous. Dictated and Authenticated by: Latrell Ware MD.Exam(s) Addendum created by Latrell Ware MD on 10/11/2023 11:25:48 PM EDT: Findings were discussed with JOSH VILLANUEVA at 10/11/2023 11:25 PM EDT. Initial report created on 10/11/2023 11:20:05 PM EDT: PROCEDURE INFORMATION: Exam: CT Head Without Contrast Exam date and time: 10/11/2023 10:56 PM Age: 78 years old Clinical indication: Altered mental status/memory loss; Confusion or disorientation; Patient HX: Repeat mental status change during stay, repeat head CT TECHNIQUE: Imaging protocol: Computed tomography of the head without contrast. Radiation optimization: All CT scans at this facility use at least one of these dose optimization techniques: automated exposure control; mA and/or kV adjustment per patient size (includes targeted exams where dose is matched to clinical indication); or iterative reconstruction. COMPARISON: MR BRAIN WO/W 10/11/2023 3:32 PM FINDINGS: Brain: Stable appearance of prominent vasogenic edema in the right cerebral hemisphere producing approximately 11 mm nstvj-ko-xurb midline shift. Known underlying mass lesion poorly demonstrated on this noncontrast CT. No acute intracranial hemorrhage or evidence of acute ischemia. Cerebral ventricles: No ventriculomegaly. Paranasal sinuses: Visualized sinuses are unremarkable. No fluid levels. Mastoid air cells: Visualized mastoid air cells are well aerated. Bones: Unremarkable. No acute fracture. Soft tissues: Unremarkable. IMPRESSION: Stable findings of significant vasogenic edema in the right cerebrum producing approximately 11 mm qnpkj-sp-jpqn midline shift. No significant change compared to the study of approximately 8 hours previous. Dictated and Authenticated by: Latrell Ware MD. Lab Data Lab results reviewed: Yes I reviewed the patient's lab results. Lab results narrative: Reviewed outpatient labs from today: -CBC benign, no leukocytosis, no anemia - Labs: Laboratory Tests Range/Units 10/11/23 14:25 COVID-19 Source Nasopharynx SARS-CoV-2 (PCR) (Negative) Negative Influenza Type A (PCR) (Negative) Negative Influenza Type B (PCR) (Negative) Negative RSV (PCR) (Negative) Negative Quality:SDOH Health Related Social Needs: No Data to Display Sign Out Sign Out Data: Sign Out Comment: Patient signed out pending consult for new finding of large mass as described by radiology. Patient in stable condition at time of signout. Last updated by Tim Singh NP at 10/11/23 16:18 Discharge Plan Disposition Patient Disposition: Transfer-Acute Inpatient Care Specific Acute Inpt Facility: [facility] Condition: Stable Discharge Details Clinical Impression: Brain mass Primary Care Provider: Shanta Snyder ED Provider: Josh Villanueva Home Meds and New Rx's Prescriptions: No Action Ydwx-Njct-Emsmr (dc-ZS-nptknz) 400-2,000 mcg tablet 1 tab PO QDAY Co Q-10 300 MG capsule 300 mg PO DAILY atorvastatin 10 mg tablet 10 mg PO DAILY Qty: 90 3RF levothyroxine 75 mcg tablet 75 mcg PO DAILY Qty: 90 3RF Rx Instructions: Take at least 30-60 minutes before first meal of the day
[2023-10-11 16:32] LABS: Bilirubin Negative (Negative); Blood Negative (Negative); Clarity Clear (Clear); Glucose Negative (Negative); Ketones 15 mg/dL (Negative); Leukocyte Esterase Negative (Negative); Nitrite Negative (Negative); Urobilinogen 0.2 mg/dL (Up to 0.2)
[2023-10-11] MEDS: Normal Saline Flush 10 ML SYR IVP (17:03)
[2023-10-11] MEDS: Dexamethasone 4 MG/ML VIAL 6 MG IVP (18:55)
[2023-10-11] MEDS: levETIRAcetam 500 MG in Normal Saline 100 ML 400 MG IVPB (18:55)
--- NOTE | 2023-10-11 22:30 | DI.CT_ITS ---
Exam(s) CT HEAD WO EXAM: CT HEAD WO CLINICAL HISTORY: mental status change during stay- repeat head CT. TECHNIQUE: Imaging Protocol: Axial computed tomography images with coronal and sagittal reformatted images were created and reviewed COMPARISON: CR,XR XR CHEST 2V PA LATERAL from 04/04/2023 MR MR BRAIN WO/W from 10/11/[address] HEAD WO from 10/11/2023 FINDINGS: There are no skull fractures. There is no fluid in the visualized paranasal sinuses. Again noted is large amount of right-sided white matter edema related to the large malignant-appearin g right temporal lobe mass described on the preceding contrast infused MRI of 10/11/2023. There is a gain noted significant effacement of the right lateral ventricle and 3rd ventricle with shift of midl ine structures towards the left by approximately 1.2 cm, unchanged. Findings are unchanged from the prior CT scan of proximally 8 hours ago. IMPRESSION: No improvement in the amount of leftward midline shift when compared to CT scan of earlier today. Th is is related to the large amount white matter edema associated with the large malignant-appearing ri ght temporal lobe mass which is best seen on the contrast infused MRI scan earlier today. RADIATION DOSE DELIVERED: 779.2mGy.cm Total DLP DATA REPOSITORY: All CT scans at this facility are submitted to the National Radiology Data Registry (NRDR) Dose Index Registry (DIR) with the [employer] (ACR). RADIATION OPTIMIZATION: All CT scans at this facility use at least one of these dose optimization te chniques: automated exposure control; mA and/or kV adjustment per patient size (includes targeted exa ms where dose is matched to clinical indication); or iterative reconstruction.
--- NOTE | 2023-10-11 23:20 | DI.VRAD_ITS ---
Addendum created by Latrell Ware MD on 10/11/2023 11:25:48 PM EDT: Findings were discussed with MACHELLE VILLANUEVA at 10/11/2023 11:25 PM EDT. Initial report created on 10/11/2023 11:20:05 PM EDT: PROCEDURE INFORMATION: Exam: CT Head Without Contrast Exam date and time: 10/11/2023 10:56 PM Age: 78 years old Clinical indication: Altered mental status/memory loss; Confusion or disorientation; Patient HX: Repeat mental status change during stay, repeat head CT TECHNIQUE: Imaging protocol: Computed tomography of the head without contrast. Radiation optimization: All CT scans at this facility use at least one of these dose optimization techniques: automated exposure control; mA and/or kV adjustment per patient size (includes targeted exams where dose is matched to clinical indication); or iterative reconstruction. COMPARISON: MR BRAIN WO/W 10/11/2023 3:32 PM FINDINGS: Brain: Stable appearance of prominent vasogenic edema in the right cerebral hemisphere producing approximately 11 mm [id number]-[id number] midline shift. Known underlying mass lesion poorly demonstrated on this noncontrast CT. No acute intracranial hemorrhage or evidence of acute ischemia. Cerebral ventricles: No ventriculomegaly. Paranasal sinuses: Visualized sinuses are unremarkable. No fluid levels. Mastoid air cells: Visualized mastoid air cells are well aerated. Bones: Unremarkable. No acute fracture. Soft tissues: Unremarkable. IMPRESSION: Stable findings of significant vasogenic edema in the right cerebrum producing approximately 11 mm [id number] midline shift. No significant change compared to the study of approximately 8 hours previous. Dictated and Authenticated by: Latrell Ware MD. Ordering:CATHI Moreno MD
--- NOTE | 2023-10-12 19:01 | NUR.NOTE ---
Accessed pt [facility] [place] for Josh BAKER to read continuing care notes on patient. He transferred pt to [facility]. Nursing Note:
== END 2023-10-12 00:46 | disposition short-term general hospital (02) ==
PROVIDERS: Nurse Practitioner Family; Emergency Provider Physician Assistant; PCP Nurse Practitioner Adult Health
DX: R53.1 Weakness (principal); R51.9 Headache, unspecified; G93.89 Other specified disorders of brain; R39.198 Other difficulties with micturition
CPT/HCPCS: 00123; 51798; 70553; 87637; 93005; 96361; 96365; 96375; 99285; 70450; 81003; 93010; J1100; J1953

== ENCOUNTER 2023-11-29 04:16 | Outpatient (CLI) | payer MEDICARE, SELFPAY ==
[2023-11-29 11:02] LABS: Abs Immature Grans 0.07 10^3/uL (0.0-0.06); Absolute Basophil Count 0.05 10^3/uL (0.0-0.2); Absolute Lymphocyte Count 1.57 10^3/uL (1.2-3.4); Absolute Monocyte Count 1.13 10^3/uL (0.1-0.8); Absolute Neutrophil Count 6.42 10^3/uL (1.2-6.7); Basophils % 0.5 %; Eosinophils % 2.1 %; HCT 37.3 % (40.0-50.0); HGB 12.7 g/dL (13.5-17.5); Immature Grans % 0.7 %; Lymphocytes % 16.6 %; MCH 31.8 pg (27.0-33.0); MCV 94 fL (80-95); Neutrophils % 68.1 %; Platelet Count 221 10^3/uL (130-400); RBC 3.99 10^6/uL (4.36-5.78); WBC 9.44 10^3/uL (4.4-10.8)
[2023-11-29 13:42] LABS: ALT 39 U/L (16-63); AST 21 U/L (15-37); Albumin 3.7 g/dL (3.4-5.0); Alkaline Phosphatase 97 U/L (46-116); Anion Gap 5.5 mmol/L (3-11); BUN 16 mg/dL (7-18); CO2 31.5 mmol/L (21.0-32.0); Calcium 9.1 mg/dL (8.5-10.1); Chloride 105 mmol/L (98-107); Glucose 97 mg/dL (74-106); Potassium 3.8 mmol/L (3.5-5.1); Sodium 142 mmol/L (136-145); Total Protein 6.8 g/dL (6.4-8.2)
== END 2023-11-29 04:17 | disposition home or self-care (01) ==
LOC: LBO 04:16
PROVIDERS: PCP Nurse Practitioner Adult Health; Visit Provider Internal Medicine Medical Oncology
DX: C71.9 Malignant neoplasm of brain, unspecified (principal)
CPT/HCPCS: 36415; 80053; 85025

== ENCOUNTER 2023-12-06 15:07 | Outpatient (CLI) | payer MEDICARE, SELFPAY ==
[2023-12-06 09:33] LABS: Abs Immature Grans 0.06 10^3/uL (0.0-0.06); Absolute Basophil Count 0.03 10^3/uL (0.0-0.2); Absolute Eosinophil Count 0.19 10^3/uL (0.0-0.7); Absolute Lymphocyte Count 1.52 10^3/uL (1.2-3.4); Absolute Monocyte Count 1.47 10^3/uL (0.1-0.8); Absolute Neutrophil Count 8.15 10^3/uL (1.2-6.7); Basophils % 0.3 %; Eosinophils % 1.7 %; HCT 38.6 % (40.0-50.0); HGB 12.8 g/dL (13.5-17.5); Immature Grans % 0.5 %; Lymphocytes % 13.3 %; MCH 31.7 pg (27.0-33.0); MCHC 33.2 % (32.0-36.0); MCV 96 fL (80-95); MPV 9.1 fL (8.0-11.0); Monocytes % 12.9 %; Neutrophils % 71.3 %; Platelet Count 216 10^3/uL (130-400); RBC 4.04 10^6/uL (4.36-5.78); RDW-SD 49.1 fL; WBC 11.43 10^3/uL (4.4-10.8)
[2023-12-06 09:50] LABS: ALT 29 U/L (16-63); AST 17 U/L (15-37); Albumin 3.6 g/dL (3.4-5.0); Alkaline Phosphatase 79 U/L (46-116); Anion Gap 7.8 mmol/L (3-11); BUN 18 mg/dL (7-18); Bilirubin, Total 1.08 mg/dL (0.2-1.0); CO2 29.2 mmol/L (21.0-32.0); Calcium 8.9 mg/dL (8.5-10.1); Chloride 104 mmol/L (98-107); Glucose 95 mg/dL (74-106); Potassium 3.9 mmol/L (3.5-5.1); Sodium 141 mmol/L (136-145); Total Protein 6.8 g/dL (6.4-8.2)
== END 2023-12-06 15:08 | disposition home or self-care (01) ==
LOC: LBO 15:07
PROVIDERS: PCP Nurse Practitioner Adult Health; Visit Provider Internal Medicine Medical Oncology
DX: Z79.899 Other long term (current) drug therapy (principal)
CPT/HCPCS: 36415; 80053; 85025

== ENCOUNTER 2023-12-14 10:34 | Outpatient (CLI) | payer MEDICARE, SELFPAY ==
[2023-12-14 09:29] LABS: Abs Immature Grans 0.04 10^3/uL (0.0-0.06); Absolute Basophil Count 0.03 10^3/uL (0.0-0.2); Absolute Eosinophil Count 0.24 10^3/uL (0.0-0.7); Absolute Monocyte Count 1.03 10^3/uL (0.1-0.8); Absolute Neutrophil Count 3.81 10^3/uL (1.2-6.7); Basophils % 0.5 %; Eosinophils % 3.8 %; HCT 37.9 % (40.0-50.0); HGB 12.8 g/dL (13.5-17.5); Immature Grans % 0.6 %; Lymphocytes % 17.6 %; MCH 31.4 pg (27.0-33.0); MCHC 33.8 % (32.0-36.0); MCV 93 fL (80-95); MPV 8.7 fL (8.0-11.0); Monocytes % 16.5 %; Platelet Count 255 10^3/uL (130-400); RBC 4.07 10^6/uL (4.36-5.78); RDW 13.4 % (11.8-14.1); RDW-SD 46.2 fL; WBC 6.25 10^3/uL (4.4-10.8)
[2023-12-14 09:50] LABS: ALT 32 U/L (16-63); AST 21 U/L (15-37); Albumin 3.7 g/dL (3.4-5.0); Alkaline Phosphatase 91 U/L (46-116); Anion Gap 4.6 mmol/L (3-11); BUN 17 mg/dL (7-18); Bilirubin, Total 0.41 mg/dL (0.2-1.0); CO2 30.4 mmol/L (21.0-32.0); CREATININE 1.1 mg/dL (0.70-1.30); Calcium 9.2 mg/dL (8.5-10.1); Chloride 107 mmol/L (98-107); Estimated GFR 69.57 (mL/min/1.73m2); Glucose 90 mg/dL (74-106); Sodium 142 mmol/L (136-145); Total Protein 7.1 g/dL (6.4-8.2)
[2023-12-14 09:52] LABS: Creatine Kinase 73 U/L (39-308)
[2023-12-14 09:53] LABS: Calculated LDL 53 mg/dL (<100); Cholesterol 114 mg/dL (<200); HDL Cholesterol 40 mg/dL (40-60); TSH (W/Ref FT4) 3.36 uIU/mL (0.36-3.74); Triglyceride 109 mg/dL (<150)
[2023-12-14 09:54] LABS: Hemoglobin A1C 5.9 % (<5.7)
== END 2023-12-14 10:35 | disposition home or self-care (01) ==
PROVIDERS: PCP Nurse Practitioner Adult Health; Visit Provider Internal Medicine Medical Oncology
DX: E03.8 Other specified hypothyroidism (principal); E78.5 Hyperlipidemia, unspecified; R73.01 Impaired fasting glucose; E03.9 Hypothyroidism, unspecified; R53.1 Weakness; R41.82 Altered mental status, unspecified; Z79.899 Other long term (current) drug therapy
CPT/HCPCS: 36415; 80048; 80053; 80061; 82550; 83036; 84443; 85025

== ENCOUNTER 2023-12-21 13:02 | Outpatient (CLI) | payer MEDICARE, SELFPAY ==
[2023-12-21 08:21] LABS: Abs Immature Grans 0.03 10^3/uL (0.0-0.06); Absolute Basophil Count 0.05 10^3/uL (0.0-0.2); Absolute Eosinophil Count 0.19 10^3/uL (0.0-0.7); Absolute Lymphocyte Count 1.04 10^3/uL (1.2-3.4); Absolute Monocyte Count 0.81 10^3/uL (0.1-0.8); Absolute Neutrophil Count 3.92 10^3/uL (1.2-6.7); Basophils % 0.8 %; Eosinophils % 3.1 %; HCT 40.4 % (40.0-50.0); HGB 13.2 g/dL (13.5-17.5); Immature Grans % 0.5 %; Lymphocytes % 17.2 %; MCH 31.2 pg (27.0-33.0); MCHC 32.7 % (32.0-36.0); MCV 96 fL (80-95); MPV 8.7 fL (8.0-11.0); Monocytes % 13.4 %; Platelet Count 261 10^3/uL (130-400); RBC 4.23 10^6/uL (4.36-5.78); RDW 13.2 % (11.8-14.1); RDW-SD 46.9 fL; WBC 6.04 10^3/uL (4.4-10.8)
[2023-12-21 08:37] LABS: Calcium 9.4 mg/dL (8.5-10.1); Chloride 105 mmol/L (98-107); Sodium 142 mmol/L (136-145)
[2023-12-21 08:48] LABS: ALT 28 U/L (16-63); AST 20 U/L (15-37); Albumin 3.8 g/dL (3.4-5.0); Alkaline Phosphatase 88 U/L (46-116); Anion Gap 5.9 mmol/L (3-11); BUN 13 mg/dL (7-18); Bilirubin, Total 0.63 mg/dL (0.2-1.0); CO2 31.1 mmol/L (21.0-32.0); Glucose 96 mg/dL (74-106); Potassium 4.5 mmol/L (3.5-5.1); Total Protein 7.1 g/dL (6.4-8.2)
== END 2023-12-21 13:03 | disposition home or self-care (01) ==
LOC: LBO 13:02
PROVIDERS: PCP Nurse Practitioner Adult Health; Visit Provider Internal Medicine Medical Oncology
DX: Z79.899 Other long term (current) drug therapy (principal); C71.9 Malignant neoplasm of brain, unspecified
CPT/HCPCS: 36415; 80053; 85025

== ENCOUNTER 2023-12-27 08:58 | Outpatient (CLI) | payer MEDICARE, SELFPAY ==
[2023-12-27 08:57] LABS: Abs Immature Grans 0.02 10^3/uL (0.0-0.06); Absolute Basophil Count 0.05 10^3/uL (0.0-0.2); Absolute Eosinophil Count 0.24 10^3/uL (0.0-0.7); Absolute Lymphocyte Count 1.07 10^3/uL (1.2-3.4); Absolute Monocyte Count 0.75 10^3/uL (0.1-0.8); Absolute Neutrophil Count 3.21 10^3/uL (1.2-6.7); Basophils % 0.9 %; Eosinophils % 4.5 %; HCT 40.6 % (40.0-50.0); HGB 13.4 g/dL (13.5-17.5); Immature Grans % 0.4 %; MCH 31.3 pg (27.0-33.0); MCV 95 fL (80-95); MPV 8.7 fL (8.0-11.0); Neutrophils % 60.2 %; Platelet Count 250 10^3/uL (130-400); RBC 4.28 10^6/uL (4.36-5.78); RDW 13.2 % (11.8-14.1); WBC 5.34 10^3/uL (4.4-10.8)
[2023-12-27 09:21] LABS: ALT 26 U/L (16-63); AST 17 U/L (15-37); Albumin 3.8 g/dL (3.4-5.0); Alkaline Phosphatase 95 U/L (46-116); Anion Gap 7.4 mmol/L (3-11); BUN 20 mg/dL (7-18); Bilirubin, Total 0.72 mg/dL (0.2-1.0); CO2 29.6 mmol/L (21.0-32.0); Calcium 9.4 mg/dL (8.5-10.1); Chloride 106 mmol/L (98-107); Glucose 100 mg/dL (74-106); Potassium 4.3 mmol/L (3.5-5.1); Sodium 143 mmol/L (136-145); Total Protein 6.9 g/dL (6.4-8.2)
== END 2023-12-27 08:59 | disposition home or self-care (01) ==
PROVIDERS: PCP Nurse Practitioner Adult Health; Visit Provider Internal Medicine Medical Oncology
DX: C71.9 Malignant neoplasm of brain, unspecified (principal); E78.5 Hyperlipidemia, unspecified; R73.01 Impaired fasting glucose; E03.9 Hypothyroidism, unspecified
CPT/HCPCS: 36415; 80048; 80053; 85025

== ENCOUNTER 2024-01-03 09:34 | Outpatient (CLI) | payer MEDICARE, SELFPAY ==
[2024-01-03 09:42] LABS: BUN 14 mg/dL (7-18); Calcium 9.2 mg/dL (8.5-10.1); Chloride 104 mmol/L (98-107); Glucose 97 mg/dL (74-106); Potassium 4.3 mmol/L (3.5-5.1); Sodium 141 mmol/L (136-145)
== END 2024-01-03 09:35 | disposition home or self-care (01) ==
LOC: LBO 09:35
PROVIDERS: PCP Nurse Practitioner Adult Health; Visit Provider Nurse Practitioner Adult Health
DX: E78.5 Hyperlipidemia, unspecified (principal); R73.01 Impaired fasting glucose; E03.9 Hypothyroidism, unspecified
CPT/HCPCS: 36415; 80048

== ENCOUNTER 2024-01-10 13:24 | Outpatient (CLI) | payer MEDICARE, SELFPAY ==
[2024-01-10 10:25] LABS: Abs Immature Grans 0.03 10^3/uL (0.0-0.06); Absolute Basophil Count 0.06 10^3/uL (0.0-0.2); Absolute Eosinophil Count 0.17 10^3/uL (0.0-0.7); Absolute Monocyte Count 0.92 10^3/uL (0.1-0.8); Absolute Neutrophil Count 3.83 10^3/uL (1.2-6.7); Eosinophils % 2.7 %; HCT 41.8 % (40.0-50.0); HGB 13.9 g/dL (13.5-17.5); Immature Grans % 0.5 %; Lymphocytes % 20.6 %; MCH 31.2 pg (27.0-33.0); MCHC 33.3 % (32.0-36.0); MCV 94 fL (80-95); MPV 8.7 fL (8.0-11.0); Monocytes % 14.6 %; Neutrophils % 60.6 %; Platelet Count 172 10^3/uL (130-400); RBC 4.46 10^6/uL (4.36-5.78); RDW 12.4 % (11.8-14.1); RDW-SD 42.9 fL; WBC 6.31 10^3/uL (4.4-10.8)
[2024-01-10 10:46] LABS: ALT 29 U/L (16-63); AST 20 U/L (15-37); Albumin 3.9 g/dL (3.4-5.0); Alkaline Phosphatase 93 U/L (46-116); Anion Gap 4.5 mmol/L (3-11); BUN 18 mg/dL (7-18); Bilirubin, Total 0.64 mg/dL (0.2-1.0); CO2 31.5 mmol/L (21.0-32.0); Calcium 9.2 mg/dL (8.5-10.1); Chloride 103 mmol/L (98-107); Glucose 99 mg/dL (74-106); Potassium 4.3 mmol/L (3.5-5.1); Sodium 139 mmol/L (136-145); Total Protein 7.3 g/dL (6.4-8.2)
== END 2024-01-10 13:25 | disposition home or self-care (01) ==
LOC: LBO 13:26
PROVIDERS: PCP Nurse Practitioner Adult Health; Visit Provider Internal Medicine Medical Oncology
DX: Z79.899 Other long term (current) drug therapy (principal); C71.9 Malignant neoplasm of brain, unspecified
CPT/HCPCS: 36415; 80053; 85025

== ENCOUNTER 2024-02-04 07:55 | Outpatient (CLI) | payer MEDICARE, SELFPAY ==
[2024-02-04 08:04] LABS: Abs Immature Grans 0.02 10^3/uL (0.0-0.06); Absolute Basophil Count 0.05 10^3/uL (0.0-0.2); Absolute Eosinophil Count 0.15 10^3/uL (0.0-0.7); Absolute Lymphocyte Count 1.38 10^3/uL (1.2-3.4); Absolute Neutrophil Count 3.46 10^3/uL (1.2-6.7); Basophils % 0.9 %; Eosinophils % 2.7 %; HCT 41.5 % (40.0-50.0); Immature Grans % 0.4 %; Lymphocytes % 24.4 %; MCH 31.2 pg (27.0-33.0); MCHC 33.7 % (32.0-36.0); MCV 92 fL (80-95); Monocytes % 10.6 %; Platelet Count 182 10^3/uL (130-400); RBC 4.49 10^6/uL (4.36-5.78); RDW 12.3 % (11.8-14.1); RDW-SD 42.2 fL; WBC 5.66 10^3/uL (4.4-10.8)
[2024-02-04 08:20] LABS: ALT 25 U/L (16-63); AST 18 U/L (15-37); Albumin 3.9 g/dL (3.4-5.0); Alkaline Phosphatase 100 U/L (46-116); Anion Gap 7.9 mmol/L (3-11); BUN 18 mg/dL (7-18); Bilirubin, Total 0.56 mg/dL (0.2-1.0); CO2 28.1 mmol/L (21.0-32.0); Calcium 9.3 mg/dL (8.5-10.1); Chloride 109 mmol/L (98-107); Glucose 106 mg/dL (74-106); Potassium 4.1 mmol/L (3.5-5.1); Sodium 145 mmol/L (136-145)
== END 2024-02-04 07:56 | disposition home or self-care (01) ==
LOC: LBO 07:57
PROVIDERS: PCP Nurse Practitioner Adult Health; Visit Provider Internal Medicine Medical Oncology
DX: Z79.899 Other long term (current) drug therapy (principal); C71.9 Malignant neoplasm of brain, unspecified
CPT/HCPCS: 36415; 80053; 85025

== ENCOUNTER 2024-02-25 09:12 | Outpatient (CLI) | payer MEDICARE, SELFPAY ==
[2024-02-25 09:07] LABS: Abs Immature Grans 0.02 10^3/uL (0.0-0.06); Absolute Basophil Count 0.03 10^3/uL (0.0-0.2); Absolute Lymphocyte Count 1.38 10^3/uL (1.2-3.4); Absolute Monocyte Count 0.69 10^3/uL (0.1-0.8); Basophils % 0.5 %; Eosinophils % 1.6 %; HCT 41.1 % (40.0-50.0); HGB 13.9 g/dL (13.5-17.5); Immature Grans % 0.3 %; Lymphocytes % 22.2 %; MCH 31.4 pg (27.0-33.0); MCHC 33.8 % (32.0-36.0); MCV 93 fL (80-95); MPV 8.8 fL (8.0-11.0); Monocytes % 11.1 %; Neutrophils % 64.3 %; Platelet Count 209 10^3/uL (130-400); RBC 4.43 10^6/uL (4.36-5.78); RDW 12.6 % (11.8-14.1); WBC 6.22 10^3/uL (4.4-10.8)
[2024-02-25 09:21] LABS: ALT 31 U/L (16-63); AST 19 U/L (15-37); Albumin 4.1 g/dL (3.4-5.0); Alkaline Phosphatase 90 U/L (46-116); Anion Gap 5.4 mmol/L (3-11); BUN 18 mg/dL (7-18); Bilirubin, Total 0.95 mg/dL (0.2-1.0); CO2 32.6 mmol/L (21.0-32.0); CREATININE 1.1 mg/dL (0.70-1.30); Calcium 9.3 mg/dL (8.5-10.1); Chloride 108 mmol/L (98-107); Estimated GFR 69.57 (mL/min/1.73m2); Glucose 101 mg/dL (74-106); Potassium 4.3 mmol/L (3.5-5.1); Sodium 146 mmol/L (136-145); Total Protein 7.3 g/dL (6.4-8.2)
== END 2024-02-25 09:13 | disposition home or self-care (01) ==
LOC: LBO 09:13
PROVIDERS: PCP Nurse Practitioner Adult Health; Visit Provider Internal Medicine Medical Oncology
DX: C71.9 Malignant neoplasm of brain, unspecified (principal)
CPT/HCPCS: 36415; 80053; 85025

== ENCOUNTER 2024-03-02 08:27 | Outpatient (CLI) | payer MEDICARE, SELFPAY ==
[2024-03-02 09:04] LABS: Abs Immature Grans 0.03 10^3/uL (0.0-0.06); Absolute Basophil Count 0.05 10^3/uL (0.0-0.2); Absolute Eosinophil Count 0.08 10^3/uL (0.0-0.7); Absolute Lymphocyte Count 1.48 10^3/uL (1.2-3.4); Absolute Monocyte Count 0.69 10^3/uL (0.1-0.8); Absolute Neutrophil Count 3.98 10^3/uL (1.2-6.7); Basophils % 0.8 %; Eosinophils % 1.3 %; HCT 42.5 % (40.0-50.0); HGB 14.7 g/dL (13.5-17.5); Immature Grans % 0.5 %; Lymphocytes % 23.5 %; MCH 31.5 pg (27.0-33.0); MCHC 34.6 % (32.0-36.0); MCV 91 fL (80-95); MPV 9.1 fL (8.0-11.0); Monocytes % 10.9 %; Platelet Count 189 10^3/uL (130-400); RBC 4.67 10^6/uL (4.36-5.78); RDW 12.7 % (11.8-14.1); RDW-SD 41.9 fL; WBC 6.31 10^3/uL (4.4-10.8)
[2024-03-02 09:40] LABS: ALT 28 U/L (16-63); AST 20 U/L (15-37); Albumin 4.3 g/dL (3.4-5.0); Alkaline Phosphatase 89 U/L (46-116); Anion Gap 6.8 mmol/L (3-11); BUN 20 mg/dL (7-18); CO2 28.2 mmol/L (21.0-32.0); Calcium 9.4 mg/dL (8.5-10.1); Chloride 108 mmol/L (98-107); Glucose 117 mg/dL (74-106); Potassium 4.1 mmol/L (3.5-5.1); Sodium 143 mmol/L (136-145); Total Protein 7.5 g/dL (6.4-8.2)
== END 2024-03-02 08:28 | disposition home or self-care (01) ==
LOC: LBO 08:28
PROVIDERS: PCP Nurse Practitioner Adult Health; Visit Provider Internal Medicine Medical Oncology
DX: Z79.899 Other long term (current) drug therapy (principal)
CPT/HCPCS: 36415; 80053; 85025

== ENCOUNTER 2024-03-23 11:34 | Outpatient (CLI) | payer MEDICARE, SELFPAY ==
[2024-03-23 11:12] LABS: Abs Immature Grans 0.01 10^3/uL (0.0-0.06); Absolute Basophil Count 0.04 10^3/uL (0.0-0.2); Absolute Eosinophil Count 0.04 10^3/uL (0.0-0.7); Absolute Lymphocyte Count 1.33 10^3/uL (1.2-3.4); Absolute Monocyte Count 0.78 10^3/uL (0.1-0.8); Absolute Neutrophil Count 4.41 10^3/uL (1.2-6.7); Basophils % 0.6 %; Eosinophils % 0.6 %; HGB 13.8 g/dL (13.5-17.5); Immature Grans % 0.2 %; Lymphocytes % 20.1 %; MCH 31.4 pg (27.0-33.0); MCHC 34.5 % (32.0-36.0); MCV 91 fL (80-95); MPV 8.7 fL (8.0-11.0); Monocytes % 11.8 %; Neutrophils % 66.7 %; Platelet Count 202 10^3/uL (130-400); RBC 4.39 10^6/uL (4.36-5.78); RDW 13.2 % (11.8-14.1); RDW-SD 44.2 fL; WBC 6.61 10^3/uL (4.4-10.8)
[2024-03-23 11:41] LABS: ALT 21 U/L (16-63); AST 16 U/L (15-37); Albumin 4.1 g/dL (3.4-5.0); Alkaline Phosphatase 78 U/L (46-116); Anion Gap 7.6 mmol/L (3-11); BUN 21 mg/dL (7-18); Bilirubin, Total 1.23 mg/dL (0.2-1.0); CO2 29.4 mmol/L (21.0-32.0); Calcium 9.1 mg/dL (8.5-10.1); Chloride 106 mmol/L (98-107); Glucose 108 mg/dL (74-106); Potassium 4.1 mmol/L (3.5-5.1); Sodium 143 mmol/L (136-145); Total Protein 7.2 g/dL (6.4-8.2)
== END 2024-03-23 11:35 | disposition home or self-care (01) ==
LOC: LBO 11:35
PROVIDERS: PCP Nurse Practitioner Adult Health; Visit Provider Internal Medicine Medical Oncology
DX: Z79.899 Other long term (current) drug therapy (principal)
CPT/HCPCS: 36415; 80053; 85025

== ENCOUNTER 2024-03-30 09:15 | Outpatient (CLI) | payer MEDICARE, SELFPAY ==
[2024-03-30 09:19] LABS: Abs Immature Grans 0.01 10^3/uL (0.0-0.06); Absolute Basophil Count 0.04 10^3/uL (0.0-0.2); Absolute Eosinophil Count 0.04 10^3/uL (0.0-0.7); Absolute Lymphocyte Count 1.21 10^3/uL (1.2-3.4); Absolute Monocyte Count 0.62 10^3/uL (0.1-0.8); Absolute Neutrophil Count 2.92 10^3/uL (1.2-6.7); Basophils % 0.8 %; Eosinophils % 0.8 %; HGB 13.7 g/dL (13.5-17.5); Immature Grans % 0.2 %; MCH 31.7 pg (27.0-33.0); MCHC 34.3 % (32.0-36.0); MCV 93 fL (80-95); MPV 8.8 fL (8.0-11.0); Monocytes % 12.8 %; Neutrophils % 60.4 %; Platelet Count 164 10^3/uL (130-400); RBC 4.32 10^6/uL (4.36-5.78); RDW 13.1 % (11.8-14.1); RDW-SD 44.5 fL; WBC 4.84 10^3/uL (4.4-10.8)
[2024-03-30 09:35] LABS: ALT 28 U/L (16-63); AST 21 U/L (15-37); Albumin 4.1 g/dL (3.4-5.0); Alkaline Phosphatase 79 U/L (46-116); Anion Gap 6.3 mmol/L (3-11); BUN 16 mg/dL (7-18); Bilirubin, Total 0.85 mg/dL (0.2-1.0); CO2 30.7 mmol/L (21.0-32.0); CREATININE 1.1 mg/dL (0.70-1.30); Calcium 9.3 mg/dL (8.5-10.1); Chloride 107 mmol/L (98-107); Estimated GFR 69.57 (mL/min/1.73m2); Glucose 110 mg/dL (74-106); Potassium 4.3 mmol/L (3.5-5.1); Sodium 144 mmol/L (136-145); Total Protein 7.1 g/dL (6.4-8.2)
== END 2024-03-30 09:16 | disposition home or self-care (01) ==
LOC: LBO 09:16
PROVIDERS: PCP Nurse Practitioner Adult Health; Visit Provider Internal Medicine Medical Oncology
DX: Z79.899 Other long term (current) drug therapy (principal); C71.9 Malignant neoplasm of brain, unspecified
CPT/HCPCS: 36415; 80053; 85025

== ENCOUNTER 2024-04-21 09:32 | Outpatient (CLI) | payer MEDICARE, SELFPAY ==
[2024-04-21 09:56] LABS: Abs Immature Grans 0.02 10^3/uL (0.0-0.06); Absolute Basophil Count 0.04 10^3/uL (0.0-0.2); Absolute Eosinophil Count 0.04 10^3/uL (0.0-0.7); Absolute Lymphocyte Count 1.17 10^3/uL (1.2-3.4); Absolute Monocyte Count 0.64 10^3/uL (0.1-0.8); Basophils % 0.6 %; Eosinophils % 0.6 %; HCT 40.7 % (40.0-50.0); HGB 14.2 g/dL (13.5-17.5); Immature Grans % 0.3 %; Lymphocytes % 18.8 %; MCHC 34.9 % (32.0-36.0); MCV 92 fL (80-95); MPV 8.7 fL (8.0-11.0); Monocytes % 10.3 %; Neutrophils % 69.4 %; Platelet Count 202 10^3/uL (130-400); RBC 4.44 10^6/uL (4.36-5.78); RDW 13.4 % (11.8-14.1); RDW-SD 45.6 fL; WBC 6.21 10^3/uL (4.4-10.8)
[2024-04-21 10:23] LABS: ALT 29 U/L (16-63); AST 19 U/L (15-37); Albumin 4.1 g/dL (3.4-5.0); Alkaline Phosphatase 77 U/L (46-116); Anion Gap 6.4 mmol/L (3-11); BUN 21 mg/dL (7-18); Bilirubin, Total 1.04 mg/dL (0.2-1.0); CO2 27.6 mmol/L (21.0-32.0); CREATININE 1.1 mg/dL (0.70-1.30); Calcium 9.5 mg/dL (8.5-10.1); Chloride 108 mmol/L (98-107); Estimated GFR 69.57 (mL/min/1.73m2); Glucose 132 mg/dL (74-106); Sodium 142 mmol/L (136-145); Total Protein 7.2 g/dL (6.4-8.2)
== END 2024-04-21 09:33 | disposition home or self-care (01) ==
LOC: LBO 09:36
PROVIDERS: PCP Nurse Practitioner Adult Health; Visit Provider Nurse Practitioner Primary Care
DX: C71.9 Malignant neoplasm of brain, unspecified (principal); Z79.899 Other long term (current) drug therapy
CPT/HCPCS: 36415; 80053; 85025

== ENCOUNTER 2024-04-27 09:13 | Outpatient (CLI) | payer MEDICARE, SELFPAY ==
[2024-04-27 09:47] LABS: Abs Immature Grans 0.02 10^3/uL (0.0-0.06); Absolute Basophil Count 0.04 10^3/uL (0.0-0.2); Absolute Eosinophil Count 0.05 10^3/uL (0.0-0.7); Absolute Lymphocyte Count 1.05 10^3/uL (1.2-3.4); Absolute Monocyte Count 0.56 10^3/uL (0.1-0.8); Basophils % 0.7 %; Eosinophils % 0.9 %; HCT 39.5 % (40.0-50.0); HGB 13.8 g/dL (13.5-17.5); Immature Grans % 0.4 %; Lymphocytes % 19.4 %; MCH 32.4 pg (27.0-33.0); MCHC 34.9 % (32.0-36.0); MCV 93 fL (80-95); MPV 9.1 fL (8.0-11.0); Monocytes % 10.3 %; Neutrophils % 68.3 %; Platelet Count 153 10^3/uL (130-400); RBC 4.26 10^6/uL (4.36-5.78); RDW 13.3 % (11.8-14.1); RDW-SD 45.5 fL; WBC 5.42 10^3/uL (4.4-10.8)
[2024-04-27 10:04] LABS: ALT 28 U/L (16-63); AST 17 U/L (15-37); Albumin 3.9 g/dL (3.4-5.0); Alkaline Phosphatase 81 U/L (46-116); Anion Gap 6.1 mmol/L (3-11); BUN 24 mg/dL (7-18); Bilirubin, Total 0.86 mg/dL (0.2-1.0); CO2 28.9 mmol/L (21.0-32.0); Calcium 8.8 mg/dL (8.5-10.1); Chloride 108 mmol/L (98-107); Glucose 113 mg/dL (74-106); Sodium 143 mmol/L (136-145); Total Protein 6.9 g/dL (6.4-8.2)
== END 2024-04-27 09:14 | disposition home or self-care (01) ==
LOC: LBO 09:14
PROVIDERS: PCP Nurse Practitioner Adult Health; Visit Provider Nurse Practitioner Primary Care
DX: C71.9 Malignant neoplasm of brain, unspecified (principal); Z79.899 Other long term (current) drug therapy
CPT/HCPCS: 36415; 80053; 85025

== ENCOUNTER 2024-05-22 12:24 | Outpatient (CLI) | payer MEDICARE, SELFPAY ==
[2024-05-22 12:45] LABS: Abs Immature Grans 0.02 10^3/uL (0.0-0.06); Absolute Basophil Count 0.02 10^3/uL (0.0-0.2); Absolute Eosinophil Count 0.04 10^3/uL (0.0-0.7); Absolute Lymphocyte Count 1.42 10^3/uL (1.2-3.4); Absolute Monocyte Count 0.68 10^3/uL (0.1-0.8); Absolute Neutrophil Count 3.88 10^3/uL (1.2-6.7); Basophils % 0.3 %; Eosinophils % 0.7 %; HCT 40.2 % (40.0-50.0); Immature Grans % 0.3 %; Lymphocytes % 23.4 %; MCH 32.4 pg (27.0-33.0); MCHC 34.8 % (32.0-36.0); MCV 93 fL (80-95); MPV 8.5 fL (8.0-11.0); Monocytes % 11.2 %; Neutrophils % 64.1 %; Platelet Count 183 10^3/uL (130-400); RBC 4.32 10^6/uL (4.36-5.78); RDW 12.9 % (11.8-14.1); RDW-SD 44.3 fL; WBC 6.06 10^3/uL (4.4-10.8)
[2024-05-22 13:02] LABS: ALT 34 U/L (16-63); AST 20 U/L (15-37); Albumin 4.3 g/dL (3.4-5.0); Alkaline Phosphatase 84 U/L (46-116); Anion Gap 4.9 mmol/L (3-11); BUN 21 mg/dL (7-18); Bilirubin, Total 0.82 mg/dL (0.2-1.0); CO2 30.1 mmol/L (21.0-32.0); Calcium 9.5 mg/dL (8.5-10.1); Chloride 106 mmol/L (98-107); Glucose 103 mg/dL (74-106); Sodium 141 mmol/L (136-145); Total Protein 7.4 g/dL (6.4-8.2)
== END 2024-05-22 12:25 | disposition home or self-care (01) ==
LOC: LBO 12:25
PROVIDERS: PCP Nurse Practitioner Adult Health; Visit Provider Nurse Practitioner Primary Care
DX: C71.9 Malignant neoplasm of brain, unspecified (principal); Z79.899 Other long term (current) drug therapy
CPT/HCPCS: 36415; 80053; 85025

== ENCOUNTER 2024-06-08 01:47 | Outpatient (CLI) | payer MEDICARE, SELFPAY ==
--- NOTE | 2024-06-08 | DI.MRI_ITS ---
Exam(s) MR BRAIN WO/W EXAM: MR BRAIN WO/W CLINICAL HISTORY: Glioblastoma multiforme, C71.9, rt temporal. TECHNIQUE: Multiplanar multisequence MRI of the brain was performed. CONTRAST MATERIAL: IV Contrast: 15 ML of Dotarem contrast administered. COMPARISON: MR MRI BRAIN WWO CONTRAST (GENERIC) from 10/13/2023 FINDINGS: VENTRICLES AND EXTRA AXIAL SPACES: Resolution of right temporoparietal collection along the craniotom y site. The right lateral ventricle now appears normal and no longer compressed. Decreased enhancem ent in the right choroid. HEMORRHAGE: None. CEREBRAL PARENCHYMA: No focus of restricted diffusion to suggest acute infarct. Large area of encepha lomalacia in the right temporal parietal lobe related to tumor resection. Marked interval decrease i n surrounding edema. Midline shift no longer present. There is now an area of abnormal enhancement in the anteroinferior right temporal lobe, adjacent to r esection cavity. This abnormal area of enhancement measures approximately 3.5 cm AP by 2 cm cephalo caudad by 2 cm transverse. The previous exam showed minimal nodular enhancement at the site. No new areas of abnormal enhancement. There are small few scattered high signal areas in the white matter consistent with sequela of microv ascular changes. BRAINSTEM/CEREBELLUM: Normal. CALVARIUM: Right temporal parietal craniotomy. VISUALIZED PARANASAL SINUSES/MASTOIDS: Clear. Orbits: Unremarkable. Pituitary: Not enlarged. Vasculature: Normal flow voids. IMPRESSION: Marked interval increase in abnormal enhancement in the anteroinferior right temporal lobe adjacent t o the resection site consistent with tumor recurrence. Marked interval decrease in white matter edema and resolution of right ventricular compression and mi dline shift. DATA REPOSITORY:
[2024-06-08] MEDS: Gadoterate meglumine 20 ML SYRINGE 15 ML IVP (10:08)
[2024-06-08] MEDS: Normal Saline Flush 10 ML SYR IVP (10:15)
== END 2024-06-08 02:07 ==
LOC: DI 01:47
PROVIDERS: PCP Nurse Practitioner Adult Health; Visit Provider Internal Medicine Medical Oncology
DX: C71.8 Malignant neoplasm of overlapping sites of brain (principal)
CPT/HCPCS: 70553

== ENCOUNTER 2024-06-19 04:15 | Outpatient (CLI) | payer MEDICARE, SELFPAY ==
[2024-06-19 12:16] LABS: Abs Immature Grans 0.02 10^3/uL (0.0-0.06); Absolute Basophil Count 0.04 10^3/uL (0.0-0.2); Absolute Eosinophil Count 0.04 10^3/uL (0.0-0.7); Absolute Lymphocyte Count 1.08 10^3/uL (1.2-3.4); Absolute Monocyte Count 0.68 10^3/uL (0.1-0.8); Absolute Neutrophil Count 3.35 10^3/uL (1.2-6.7); Basophils % 0.8 %; Eosinophils % 0.8 %; HCT 41.9 % (40.0-50.0); HGB 14.5 g/dL (13.5-17.5); Immature Grans % 0.4 %; Lymphocytes % 20.7 %; MCH 32.7 pg (27.0-33.0); MCHC 34.6 % (32.0-36.0); MCV 94 fL (80-95); MPV 8.7 fL (8.0-11.0); Monocytes % 13.1 %; Neutrophils % 64.2 %; Platelet Count 175 10^3/uL (130-400); RBC 4.44 10^6/uL (4.36-5.78); RDW 12.3 % (11.8-14.1); RDW-SD 43.2 fL; WBC 5.21 10^3/uL (4.4-10.8)
[2024-06-19 12:31] LABS: ALT 32 U/L (16-63); AST 20 U/L (15-37); Albumin 4.3 g/dL (3.4-5.0); Alkaline Phosphatase 86 U/L (46-116); BUN 19 mg/dL (7-18); Bilirubin, Total 0.8 mg/dL (0.2-1.0); Calcium 9.5 mg/dL (8.5-10.1); Chloride 107 mmol/L (98-107); Estimated GFR 77.52 (mL/min/1.73m2); Glucose 98 mg/dL (74-106); Potassium 4.4 mmol/L (3.5-5.1); Sodium 146 mmol/L (136-145); Total Protein 7.4 g/dL (6.4-8.2)
== END 2024-06-19 04:16 | disposition home or self-care (01) ==
PROVIDERS: Internal Medicine Hematology; PCP Nurse Practitioner Adult Health; Visit Provider Nurse Practitioner Primary Care
DX: C71.9 Malignant neoplasm of brain, unspecified (principal)
CPT/HCPCS: 36415; 80053; 85025

== ENCOUNTER 2024-07-10 11:03 | Outpatient (CLI) | payer MEDICARE, SELFPAY ==
[2024-07-10 09:46] LABS: Abs Immature Grans 0.03 10^3/uL (0.0-0.06); Absolute Basophil Count 0.04 10^3/uL (0.0-0.2); Absolute Eosinophil Count 0.08 10^3/uL (0.0-0.7); Absolute Lymphocyte Count 1.31 10^3/uL (1.2-3.4); Absolute Monocyte Count 0.82 10^3/uL (0.1-0.8); Absolute Neutrophil Count 3.97 10^3/uL (1.2-6.7); Basophils % 0.6 %; Eosinophils % 1.3 %; HCT 40.8 % (40.0-50.0); Immature Grans % 0.5 %; MCH 32.5 pg (27.0-33.0); MCHC 34.3 % (32.0-36.0); MCV 95 fL (80-95); MPV 9.1 fL (8.0-11.0); Monocytes % 13.1 %; Neutrophils % 63.5 %; Platelet Count 186 10^3/uL (130-400); RBC 4.31 10^6/uL (4.36-5.78); RDW 12.4 % (11.8-14.1); RDW-SD 43.7 fL; WBC 6.25 10^3/uL (4.4-10.8)
[2024-07-10 10:01] LABS: ALT 29 U/L (16-63); AST 16 U/L (15-37); Albumin 3.9 g/dL (3.4-5.0); Alkaline Phosphatase 83 U/L (46-116); Anion Gap 5.4 mmol/L (3-11); BUN 27 mg/dL (7-18); Bilirubin, Total 0.7 mg/dL (0.2-1.0); CO2 30.6 mmol/L (21.0-32.0); CREATININE 1.1 mg/dL (0.70-1.30); Chloride 111 mmol/L (98-107); Estimated GFR 69.14 (mL/min/1.73m2); Glucose 95 mg/dL (74-106); Potassium 4.3 mmol/L (3.5-5.1); Sodium 147 mmol/L (136-145)
== END 2024-07-10 11:04 | disposition home or self-care (01) ==
LOC: LBO 11:04
PROVIDERS: PCP Nurse Practitioner Adult Health; Visit Provider Nurse Practitioner Primary Care
DX: Z79.899 Other long term (current) drug therapy (principal); C71.9 Malignant neoplasm of brain, unspecified
CPT/HCPCS: 36415; 80053; 85025

== ENCOUNTER 2024-07-21 18:00 | Inpatient (IN) | payer MEDICARE, SELFPAY ==
[2024-07-21] VITALS (64 sets, daily range): BP systolic 148–215; BP diastolic 54–104; PULSE 51–78; RESP 11–27; TEMP 36.8; O2SAT 93–99
--- NOTE | 2024-07-21 18:00 | RT.EKG_ITS ---
APPROVED REPORT Exam: Resting ECG Reason for Exam: AMS Patient Location: E HR:55 bpm ECG Measurements Heart Rate 55 AXIS HI 149 P 69 QRSd 103 QRS 95 QT 407 T 44 QTc 390 Conclusion Sinus bradycardia. 55 right axis no stemi
[2024-07-21 18:43] LABS: Abs Immature Grans 0.01 10^3/uL (0.0-0.06); Absolute Basophil Count 0.03 10^3/uL (0.0-0.2); Absolute Eosinophil Count 0.08 10^3/uL (0.0-0.7); Absolute Lymphocyte Count 1.42 10^3/uL (1.2-3.4); Absolute Monocyte Count 0.77 10^3/uL (0.1-0.8); Absolute Neutrophil Count 3.18 10^3/uL (1.2-6.7); Basophils % 0.5 %; Eosinophils % 1.5 %; HCT 40.1 % (40.0-50.0); HGB 13.7 g/dL (13.5-17.5); Immature Grans % 0.2 %; Lymphocytes % 25.9 %; MCH 32.7 pg (27.0-33.0); MCHC 34.2 % (32.0-36.0); MCV 96 fL (80-95); MPV 9.2 fL (8.0-11.0); Neutrophils % 57.9 %; Platelet Count 156 10^3/uL (130-400); RBC 4.19 10^6/uL (4.36-5.78); RDW 12.2 % (11.8-14.1); RDW-SD 42.7 fL; WBC 5.49 10^3/uL (4.4-10.8)
[2024-07-21 18:56] LABS: INR 1.1 (0.9-1.1)
[2024-07-21] MEDS: Omnipaque 350 MG/ML 100 ML BTL IJ (18:59)
[2024-07-21] MEDS: Normal Saline - Diluent 50 ML VIAL IJ (18:59)
[2024-07-21 19:08] LABS: ALT 30 U/L (16-63); AST 17 U/L (15-37); Alkaline Phosphatase 87 U/L (46-116); Anion Gap 6.2 mmol/L (3-11); BUN 24 mg/dL (7-18); Bilirubin, Total 0.6 mg/dL (0.2-1.0); CO2 30.8 mmol/L (21.0-32.0); Calcium 9.3 mg/dL (8.5-10.1); Chloride 108 mmol/L (98-107); Estimated GFR 77.52 (mL/min/1.73m2); Glucose 96 mg/dL (74-106); Magnesium 2.3 mg/dL (1.8-2.4); Potassium 3.8 mmol/L (3.5-5.1); Sodium 145 mmol/L (136-145); TSH (W/Ref FT4) 2.81 uIU/mL (0.36-3.74); Total Protein 6.9 g/dL (6.4-8.2)
--- NOTE | 2024-07-21 19:14 | ED.GENADUL_ITS ---
Discharge Plan Disposition Patient Disposition: Admit to [facility] Condition: Poor Discharge Details Chief Complaint: AMS/LOC Clinical Impression: Encephalopathy acute, Glioblastoma multiforme Primary Care Provider: Shanta Snyder ED Provider: Rose Otto Home Meds and New Rx's Prescriptions: No Action pantoprazole 40 mg tablet,delayed release (DR/EC) 40 mg PO DAILY Rx Instructions: While taking steroids levetiracetam [Keppra] 500 mg tablet 500 mg PO BID Rx Instructions: Take 1 tab po bid fludrocortisone 0.1 mg tablet 0.05 mg PO DAILY Rx Instructions: Take 0.05mg po daily quetiapine [Seroquel] 50 mg tablet 50 mg PO QHS PRN sennosides-docusate sodium [Senna with Docusate Sodium] 8.6-50 mg tablet 2 tab-cap PO BID PRN sodium chloride 1 gram tablet 3,000 mg PO TID acetaminophen 500 mg tablet 1,000 mg PO Q8H PRN PRN glucosamine sulfate 500 mg tablet 500 mg PO DAILY Rx Instructions: administer with a meal Zzjx-Qdmu-Cursy (sv-NQ-msarun) 400-2,000 mcg tablet 1 tab PO QDAY Co Q-10 300 MG capsule 300 mg PO DAILY levothyroxine 75 mcg tablet See Rx Instructions .ROUTE .COMPLEX Qty: 90 3RF Dose Instruction: TAKE 1 TABLET DAILY AT LEAST 30 TO 60 MINUTES BEFORE FIRST MEAL OF THE DAY Rx Instructions: TAKE 1 TABLET DAILY AT LEAST 30 TO 60 MINUTES BEFORE FIRST MEAL OF THE DAY atorvastatin 10 mg tablet See Rx Instructions .ROUTE .COMPLEX Qty: 90 3RF Dose Instruction: TAKE 1 TABLET DAILY Rx Instructions: TAKE 1 TABLET DAILY lorazepam 0.5 mg tablet Patient Comments: TAKE ONE TABLET BY MOUTH EVERY 8 HOURS NEEDED FOR ANXIETY sodium chloride 1,000 mg tablet,soluble Patient Comments: TAKE THREE TABLETS BY MOUTH THREE TIMES EVERY DAY HPI General Date/Time Provider Initiated Documentation: 07/21/24 18:28 . Limitations to Documentation: altered mental status . Information obtained by: patient and family . HPI Narrative: 79-year-old gentleman with past medical history of GBM followed by [facility] oncology status post resection presents for evaluation of worsening altered mental status and confusion. The reports that for the last week she has been noticing this confusion. He seems to have an increased tremor in his upper extremities that makes it difficult for him to drink or feed himself. So he s eems to be avoiding doing this. She is also noted that he seems to be having strange conversations. He is talking on the phone, but is not sure that he is actually talking to anyone. she said his gait has become shuffling and that is has significant difficulty sitting down and getting out of a chair. this is all new over the week. feels very afraid that something bad will happen and is afraid to leave him alone. Related Data Home Medications ?Medication ?Instructions ?Recorded ?Confirmed coenzyme Q10 300 mg capsule (Co 300 mg PO DAILY 11/22/12 07/21/24 Q-10) multivitamin-folic acid 400 1 tab PO QDAY 10/16/19 07/21/24 mcg-biotin 2,000 mcg tablet (Oszi-Mrnf-Hguow (ixzljyen-sgsta-qlgpya)) acetaminophen 500 mg tablet 1,000 mg PO Q8H PRN PRN 10/27/23 07/21/24 fludrocortisone 0.1 mg tablet 0.05 mg PO DAILY 10/27/23 07/21/24 glucosamine sulfate 500 mg tablet 500 mg PO DAILY 10/27/23 07/21/24 levetiracetam 500 mg tablet 500 mg PO BID 10/27/23 07/21/24 (Keppra) pantoprazole 40 mg tablet,delayed 40 mg PO DAILY 10/27/23 07/21/24 release quetiapine 50 mg tablet (Seroquel) 50 mg PO QHS PRN 10/27/23 07/21/24 sennosides 8.6 mg-docusate sodium 2 tab-cap PO BID PRN 10/27/23 07/21/24 50 mg tablet (Senna with Docusate Sodium) sodium chloride 1 gram tablet 3,000 mg PO TID 10/27/23 07/21/24 atorvastatin 10 mg tablet See Rx Instructions .Route 04/23/24 07/21/24 .COMPLEX #90 tabs levothyroxine 75 mcg tablet See Rx Instructions .Route 04/23/24 07/21/24 .COMPLEX #90 tabs lorazepam 0.5 mg tablet mg 07/21/24 sodium chloride 1,000 mg soluble mg 07/21/24 tablet Previous Rx's ?Medication ?Instructions ?Recorded atorvastatin 10 mg tablet See Rx Instructions .Route 04/23/24 .COMPLEX #90 tabs levothyroxine 75 mcg tablet See Rx Instructions .Route 04/23/24 .COMPLEX #90 tabs Allergies Allergy/AdvReac Type Severity Reaction Status Date / Time Sulfa (Sulfonamide AdvReac Unknown Other (See Unverified 07/21/24 20:08 Antibiotics) Comment) General Stated Complaint: AMS/LOC KAREN: 3 Exam Narrative Exam Narrative: Review of Systems: All systems reviewed & are unremarkable except as noted in HPI and below Well-developed, no acute distress NCAT PERRL, no nystagmus RRR Unlabored respiratory effort Nondistended abdomen Slight tremor noted in the right upper extremity, generalized weakness in bilateral upper extremities, left lower extremity feels 4 out of 5, right lower extremity slightly stronger Oriented to place, person, unable to correctly identify year, month or birthday Course Vital Signs Vital signs: Vital Signs Pulse 60 07/21/24 18:09 Respiratory Rate 18 07/21/24 18:09 Blood Pressure 171/65 H 07/21/24 18:09 Pulse Oximetry 97 07/21/24 18:09 Pulse 52 L 07/21/24 18:46 Pulse 53 L 07/21/24 18:46 Respiratory Rate 16 07/21/24 18:46 Respiratory Effort Normal, Non-Labored 07/21/24 18:37 Respiratory Depth Normal 07/21/24 18:37 Respiratory Pattern Normal 07/21/24 18:37 Blood Pressure 154/74 H 07/21/24 18:46 Blood Pressure Mean 103 07/21/24 18:46 Pulse Oximetry 96 07/21/24 18:46 Lab/Test Results Lab/Test Results: Laboratory Tests Range/Units 07/21/24 18:23 WBC (4.4-10.8) 10^3/uL 5.49 RBC (4.36-5.78) 10^6/uL 4.19 L Hgb (13.5-17.5) g/dL 13.7 Hct (40.0-50.0) % 40.1 MCV (80-95) fL 96 H MCH (27.0-33.0) pg 32.7 MCHC (32.0-36.0) % 34.2 RDW (11.8-14.1) % 12.2 Plt Count (130-400) 10^3/uL 156 MPV (8.0-11.0) fL 9.2 Immature Gran % % 0.2 Neutrophils % % 57.9 Lymphocytes % % 25.9 Monocytes % % 14.0 Eosinophils % % 1.5 Basophils % % 0.5 Nucleated RBC % (0.0-0.3) % 0.0 Absolute Neutrophils (1.2-6.7) 10^3/uL 3.18 Absolute Lymphocytes (1.2-3.4) 10^3/uL 1.42 Absolute Monocytes (0.1-0.8) 10^3/uL 0.77 Absolute Eosinophils (0.0-0.7) 10^3/uL 0.08 Absolute Basophils (0.0-0.2) 10^3/uL 0.03 PT (9.1-11.1) sec 11.0 INR (0.9-1.1) 1.1 Sodium (136-145) mmol/L 145 Potassium (3.5-5.1) mmol/L 3.8 Chloride (98-107) mmol/L 108 H Carbon Dioxide (21.0-32.0) mmol/L 30.8 Anion Gap (3-11) mmol/L 6.2 BUN (7-18) mg/dL 24 H Creatinine (0.70-1.30) mg/dL 1.0 Est GFR (CKD-EPI 2020) (mL/min/1.73m2) 77.52 Glucose (74-106) mg/dL 96 Calcium (8.5-10.1) mg/dL 9.3 Magnesium (1.8-2.4) mg/dL 2.3 Total Bilirubin (0.2-1.0) mg/dL 0.6 AST (15-37) U/L 17 ALT (16-63) U/L 30 Alkaline Phosphatase (46-116) U/L 87 Total Protein (6.4-8.2) g/dL 6.9 Albumin (3.4-5.0) g/dL 4.0 TSH (0.36-3.74) uIU/mL 2.81 Medical Decision Making Emergent evaluation of altered mental status. The patient is demonstrating signs of confusion, worsening over the week. Initial differential includes benign malignancy, electrolyte derangement, infectious etiology. There do not appear to be any focal neurodeficits at this time. The patient does seem to have a right upper extremity slight tremor which seems to be significantly more pronounced at home and this would be concerning for possible focal seizure. I reviewed the patient's outpatient medical record at [facility], he is followed closely by neuro-oncology and is currently on treatment for glioblastoma. Lab work reviewed. There is no leukocytosis or anemia. His INR is 1.1. His electrolytes do not reveal significant derangement. His sodium is 145 today. I have sent a Keppra level. A CT scan with and without contrast was obtained as MRI is not available at this time. I did discuss the findings with Katey monsalve and they do not feel that there is a significant difference from prior study but very high suspicion for residual tumor likely causing the patient's symptoms. I have reached out to [facility] for recommendations regarding this patient's management. Discussed with Dr. Shahid, neurosurgery at [facility] who has reviewed the patient's medical record, workup tonight including his imaging. At this time there is still a broad differential that could be causing his delirium noted there does not appear to be an acute neurosurgical issue. She is recommending MRI and EEG and recommending that the patient come to [facility]. However because of capacity at [facility], at this time the patient cannot go as an ED transfer, hospital medicine admission and has been declined for no specific reason by neurology service. The transfer center is recommending that we reach back out tomorrow morning to get a status check on getting the patient down there for his further workup. While in the emergency department, the patient has progressed in terms of his confusion. He does not know where he is anymore and he does not know where his is This seems to be fairly upsetting for him. At this time I will admit the patient to hospital medicine for further management and observation of his delirium and to further arrange for transfer to [facility] Quality:SDOH Health Related Social Needs: No Data to Display PFSH All Active Problems (Updated 07/21/24 @ 22:21 by Rose Otto MD) Encephalopathy (Acute) Encephalopathy acute (Acute) Glioblastoma multiforme (Chronic ~10/2023) Impaired gait and mobility (Chronic ~10/2023) r/t brain mass (GBM); uses walker Decreased range of motion of neck (Acute ~01/2023) Metabolic syndrome (Chronic) Hyperlipidemia, unspecified (Chronic) 06/2018 labs: good response to moderate potency statin, continue Abnormal ECG (Chronic 09/28/11) intraventricular conduction abnl on EKG Hypothyroidism (Chronic 08/20/10) DX 08/2010, HUGE IMPROVEMENT WITH RX IN ENERGY Lumbar stenosis (Chronic 12/31/16) Pain and spine note 01/16/21: Spinal stenosis of lumbar region with neurogenic claudication IFG (impaired fasting glucose) (Chronic) Medical History Hyponatremia (~01/2023) Migraine (09/28/11) OCC IBUPROFEN; CAFFEINE H/A 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 Diabetes Resolved with LSMs Father , CVA Dementia Heart disease h/o [place], CABG Myocardial infarction Stroke Sister Age: 76 Obese Social History Smoking/Tobacco Use Status: Former Tobacco Use tobacco type: cigarettes Quit Date: 04/12/71 Quit status: quit date established Smoking risk assessment performed?: Yes Alcohol Intake: current Alcohol Intake frequency: holidays/special occasions only Drug use: Never Substance use type: does not use Counseling given: No Adopted: No Caregiver/Support person: No Foster care: No Household members: spouse Housing: house Number of Children: 2 number of grandchildren: 4 Communication Needs: Corrective Lenses Education Level: college Details: Bachelors Do you need help understanding health information?: Never current occupation: Retired Nurse Pets and animals: No Sexually active: Yes Do you think of yourself as: straight/heterosexual Current gender identity: male What is your relationship status?: How often do you talk on the phone with friends or family?: three or more times per week How often do you get together with friends or relatives?: once per week How often do you attend tenriism or hinduism services?: 1-3 times per year Do you belong to any clubs or organized social groups?: no Panel score (0-1 are the most socially isolated patients): 2 What type of physical activity do you participate in: walking, bicycling and other Details: Active during day, skiing, isometric Duration: 60-90 minutes/day Frequency: daily Jerrica/Yazidi: Druze Seatbelt use: always Helmet use: Yes Helmet use: always Drive intox or ride w/intox powder truck driver: No Water heater temp set <120 deg: Yes Working smoke detector in home: Yes Fire extinguisher in home: Yes Carbon monox detector in home: Yes Firearms in home: Yes Firearms unloaded and locked: Yes Do you feel safe at home: Yes Do you feel safe in your relationship?: Yes Victim of physical abuse: No Victim of emotional abuse: No Victim of sexual abuse: No
--- NOTE | 2024-07-21 19:14 | DI.CT_ITS ---
Exam(s) CT HEAD WO/W EXAM: CT HEAD WO/W CLINICAL HISTORY: ams. TECHNIQUE: Imaging Protocol: Axial computed tomography images with coronal and sagittal reformatted images were created and reviewed. CONTRAST MATERIAL: Intravenous: Omnipaque 350 Contrast volume:100 ml COMPARISON: CT CT HEAD WO from 10/11/2023 MR MRI BRAIN WWO CONTRAST (GENERIC) from 10/13/2023 MR MR BRAIN WO/W from 06/08/2024 FINDINGS: Ventricles and Extra axial spaces: There is now some compression of the temporal horn of the right la teral ventricle compared to prior. Hemorrhage: None. Cerebral parenchyma: Large area of encephalomalacia/resection cavity is again noted in the right temp oral parietal region extending to the level of the right lateral ventricle. There is abnormal enhanc ing tissue noted in the residual anterior right temporal lobe with edema. The findings appear somew hat more extensive compared to the previous MRI. No new masses are identified. Midline shift: None. Brainstem/Cerebellum: Normal. Calvarium: Right sided temporoparietal craniotomy defect again noted. Visualized Paranasal sinuses/Mastoids: Clear. IMPRESSION: Increasing size of the residual/recurrence tumor in the right temporal lobe. RADIATION DOSE DELIVERED: Total DLP DATA REPOSITORY: All CT scans at this facility are submitted to the National Radiology Data Registry (NRDR) Dose Index Registry (DIR) with the [employer] (A[employer]). RADIATION OPTIMIZATION: All CT scans at this facility use at least one of these dose optimization te chniques: automated exposure control; mA and/or kV adjustment per patient size (includes targeted exa ms where dose is matched to clinical indication); or iterative reconstruction.
--- NOTE | 2024-07-21 20:02 | DI.VRAD_ITS ---
Addendum created by Nicholas Doan MD on 07/21/2024 8:01:32 PM EDT: THIS REPORT CONTAINS FINDINGS THAT MAY BE CRITICAL TO PATIENT CARE. The findings were verbally communicated via telephone conference with JONO MCKEON at 8:01 PM EDT on 07/21/2024. The findings were acknowledged and understood. Initial report created on 07/21/2024 8:01:18 PM EDT: PROCEDURE INFORMATION: Exam: CT Head Without And With Contrast Exam date and time: 07/21/2024 6:51 PM Age: 79 years old Clinical indication: Other: AMS; Additional info: HX brain tumor TECHNIQUE: Imaging protocol: Computed tomography of the head without and with contrast. Contrast material: OMNIPAQUE 350; Contrast volume: 100 ml; Contrast route: INTRAVENOUS (IV); COMPARISON: MR BRAIN WO/W 06/08/2024 9:58 AM FINDINGS: Brain: A 6 cm ovoid resection cavity is again seen involving the mid to anterior right temporal lobe and extends to the lateral margins of the temporal horn and trigone of the right lateral ventricle, similar in appearance. Postcontrast images again demonstrate irregular heterogeneous enhancement extending from the anterior margins of the resection cavity into the anterior right temporal tip concerning for residual/recurrent tumor. Cerebral sulci show bilateral symmetry throughout the remainder of both hemispheres with no other supratentorial mass or mass effect detected. Brainstem and cerebellum are unremarkable. There is no evidence of acute transcortical infarction or recent intracranial hemorrhage. Cerebral ventricles: No significant midline shift or hydrocephalus. Paranasal sinuses: Grossly clear throughout. Mastoid air cells: Grossly clear bilaterally. Bones: Stable right-sided craniotomy defect with no acute osseous lesions detected. Soft tissues: Unremarkable. IMPRESSION: 1. A 6 cm ovoid resection cavity is again seen involving the mid to anterior right temporal lobe and extends to the lateral margins of the temporal horn and trigone of the right lateral ventricle, similar in appearance. Postcontrast images again demonstrate irregular heterogeneous enhancement extending from the anterior margins of the resection cavity into the anterior right temporal tip concerning for residual/recurrent tumor. 2. Cerebral sulci show bilateral symmetry throughout the remainder of both hemispheres with no other supratentorial mass or mass effect detected. There is no evidence of acute transcortical infarction or recent intracranial hemorrhage. Dictated and Authenticated by: Nicholas Doan MD. Orderin Clarita Sierra MD
[2024-07-21 21:03] LABS: Bilirubin Negative (Negative); Blood Negative (Negative); Clarity Clear (Clear); Glucose Negative (Negative); Ketones Negative (Negative); Leukocyte Esterase Negative (Negative); Nitrite Negative (Negative); Specific Gravity 1.015 (1.005-1.025); Urobilinogen 0.2 mg/dL (Up to 0.2); pH 6.5 (5-8)
--- NOTE | 2024-07-21 22:06 | HPE_ITS ---
Date of service: 07/21/24 Time of Service: 22:06 Assessment and Plan Assessment and plan (1) Encephalopathy acute: Start date: 07/21/24 Status: Acute Assessment and plan: This is 79-year-old gentleman status post glioblastoma resection from the right temporal lobe now with altered mental status and appearing encephalopathic likely secondary to recurrence of tumor in the area of resection. He has no focal motor deficits and does not appear to have seizure activity delayed is tremoring. He is on a stable dose of Keppra which not be changed but Keppra level was sent. Neurosurgery does want the patient at [facility] and suggested calling the transfer center in the morning for possible bed availability on the medical service or neurology service. Patient does need an MRI and EEG for evaluation but this is not urgent. Patient is not able to stay home at this time because of his not being able to handle his 24-hour care and fatigue. PT will evaluate patient for safe ambulation with patient using walker prior to this deterioration of 1 week. He remains a full code. (2) Glioblastoma multiforme: Status: Chronic Assessment and plan: Possible recurrence but MRI and EEG needed for further evaluation pain changes as of 1 week. This appeared to be a rapid change. (3) Impaired gait and mobility: Status: Chronic Assessment and plan: Patient is calling and in danger of injuring himself presently and cannot ambulate safely with a walker as he was prior to this past week. Physical therapy will evaluate the patient for safety and if patient can return home with increased services pending further evaluation at [facility] this should be arranged. Patient's needs to be agreeable to this plan. This may be difficult to accomplish over the weekend. 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 This is not causing his confusion. (5) Hyperlipidemia, unspecified: Status: Chronic Assessment and plan: Continue statin therapy. (6) Hypothyroidism: Status: Chronic Assessment and plan: TSH normal with continuation of outpatient supplementation. History of Present Illness History of Present Illness Chief Complaint: Increased confusion with shuffling gait and difficulty rising from chair. Narrative: This is a 79-year-old male patient who has a known glioblastoma multiforme diagnosed in October 2023 status post resection with resection at about the same time, now with a 1 week history of altered mental status with patient having increased confusion, difficulty feeding himself and rising from a chair when sitting as well as shuffling gait. He has been having conversations with people on the phone who are not there according to his . His has been awake for the last week, worried that he would fall or hurt himself and has extreme fatigue from attending her . He has confusion not knowing where he is and got upset easily when his left him in the ED. [facility] neurosurgery does want patient transferred to their facility but stated that there is no neurosurgical emergency. They did recommend MRI and EEG with further evaluation by neurosurgery at [facility] but the transfer center said that there is no bed available on the medical or neurology service. The patient cannot return home with his confusion and instability. His chronic medical problems are overall stable with a history of SIADH and hyponatremia with sodium normal. He does not appear to have any focal neurological symptoms other than his right arm tremoring and his change in gait and coordination. Imaging does show a large ovoid resection cavity in the mid to anterior right temporal lobe with irregular heterogeneous enhancement extending from the anterior margins with possible recurrence of tremor. This had minimal change from MRI done June 08, 2024. [facility] transfer center did recommend calling neurosurgery in the morning to reevaluate bed status but no physician had accepted the patient as of yet. He remains a full code though this may need to be discussion with his family if he has recurring tumor. Patient will see PT while at this facility and if no bed available at [facility] he may obtain MRI of the brain and EEG early next week if not able to return home safely with his . Review of Systems Narrative: 13 point review of system otherwise unobtainable with patient's encephalopathy. [facility] All Active Problems Encephalopathy (Acute) Encephalopathy acute (Acute) Glioblastoma multiforme (Chronic ~10/2023) Impaired gait and mobility (Chronic ~10/2023) r/t brain mass (GBM); uses walker Decreased range of motion of neck (Acute ~01/2023) Metabolic syndrome (Chronic) Hyperlipidemia, unspecified (Chronic) 06/2018 labs: good response to moderate potency statin, continue Abnormal ECG (Chronic 09/28/11) intraventricular conduction abnl on EKG Hypothyroidism (Chronic 08/20/10) DX 08/2010, HUGE IMPROVEMENT WITH RX IN ENERGY Lumbar stenosis (Chronic 12/31/16) Pain and spine note 01/16/21: Spinal stenosis of lumbar region with neurogenic claudication IFG (impaired fasting glucose) (Chronic) Medical History Hyponatremia (~01/2023) Migraine (09/28/11) OCC IBUPROFEN; CAFFEINE H/A 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 Arthroplasty of knee (11/13/05) L KNEE DREISBACH Family History Mother , Failure to thrive at age 92. Diabetes [facility] Father , CVA Dementia Heart disease h/o [place], CABG Myocardial infarction Stroke Sister Age: 76 Obese Social History Smoking/Tobacco Use Status: Former Tobacco Use tobacco type: cigarettes Quit Date: 04/12/71 Quit status: quit date established Smoking risk assessment performed?: Yes Alcohol Intake: current Alcohol Intake frequency: holidays/special occasions only Drug use: Never Substance use type: does not use Counseling given: No Adopted: No Caregiver/Support person: No Foster care: No Household members: spouse Housing: house Number of Children: 2 number of grandchildren: 4 Communication Needs: Corrective Lenses Education Level: college Details: Bachelors Do you need help understanding health information?: Never current occupation: Retired Nurse Pets and animals: No Sexually active: Yes Do you think of yourself as: straight/heterosexual Current gender identity: male What is your relationship status?: How often do you talk on the phone with friends or family?: three or more times per week How often do you get together with friends or relatives?: once per week How often do you attend synagogue or cheondoism services?: 1-3 times per year Do you belong to any clubs or organized social groups?: no Panel score (0-1 are the most socially isolated patients): 2 What type of physical activity do you participate in: walking, bicycling and other Details: Active during day, skiing, isometric Duration: 60-90 minutes/day Frequency: daily Jerrica/Rastafari: Sikh Seatbelt use: always Helmet use: Yes Helmet use: always Drive intox or ride w/intox cab driver: No Water heater temp set <120 deg: Yes Working smoke detector in home: Yes Fire extinguisher in home: Yes Carbon monox detector in home: Yes Firearms in home: Yes Firearms unloaded and locked: Yes Do you feel safe at home: Yes Do you feel safe in your relationship?: Yes Victim of physical abuse: No Victim of emotional abuse: No Victim of sexual abuse: No Meds Allergies and Home Medications Allergies Allergy/AdvReac Type Severity Reaction Status Date / Time Sulfa (Sulfonamide AdvReac Unknown Other (See Unverified 07/21/24 20:08 Antibiotics) Comment) Home Medications ?Medication ?Instructions ?Recorded ?Confirmed ?Type coenzyme Q10 300 mg capsule (Co 300 mg PO DAILY 11/22/12 07/21/24 History Q-10) multivitamin-folic acid 400 1 tab PO QDAY 10/16/19 07/21/24 History mcg-biotin 2,000 mcg tablet (Riqg-Eipm-Lupne (axcnbivx-ggtrt-jucipx)) acetaminophen 500 mg tablet 1,000 mg PO Q8H PRN PRN 10/27/23 07/21/24 History fludrocortisone 0.1 mg tablet 0.05 mg PO DAILY 10/27/23 07/21/24 History glucosamine sulfate 500 mg tablet 500 mg PO DAILY 10/27/23 07/21/24 History levetiracetam 500 mg tablet 500 mg PO BID 10/27/23 07/21/24 History (Keppra) pantoprazole 40 mg tablet,delayed 40 mg PO DAILY 10/27/23 07/21/24 History release quetiapine 50 mg tablet (Seroquel) 50 mg PO QHS PRN 10/27/23 07/21/24 History sennosides 8.6 mg-docusate sodium 2 tab-cap PO BID PRN 10/27/23 07/21/24 History 50 mg tablet (Senna with Docusate Sodium) sodium chloride 1 gram tablet 3,000 mg PO TID 10/27/23 07/21/24 History atorvastatin 10 mg tablet See Rx Instructions .Route 04/23/24 07/21/24 Rx .COMPLEX #90 tabs levothyroxine 75 mcg tablet See Rx Instructions .Route 04/23/24 07/21/24 Rx .COMPLEX #90 tabs lorazepam 0.5 mg tablet mg 07/21/24 History sodium chloride 1,000 mg soluble mg 07/21/24 History tablet Exam Narrative Exam Narrative: General: Patient appears older than stated age, chronically ill-appearing, not able to answer questions appropriately and slow to respond, does not appear in acute distress. He is very tremulous. HEENT: Normocephalic, eyes with pupils equal and react to light symmetrically, extraocular movement intact and sclera anicteric. Oropharynx with dry mucosa and poor dentition. Neck: Supple without JVD. Back: Kyphotic without CVA tenderness. Lungs: Fair aeration and clear to auscultation and percussion with no focalizing rales or rhonchi. No expiratory wheeze. Heart: Regular rate and rhythm with no murmurs or gallops appreciated. Abdomen: Normal contour, soft and nontender to palpation no palpable hepatosplenomegaly. Bowel sounds positive all quadrants. Genitalia/rectal: Exam deferred. Extremities: Without clubbing, cyanosis or pitting edema. Fair capillary refill. Skin: Normal color, warm and dry. Neuro: Cranial nerves II through XII grossly intact, no focalized motor deficits, diffuse tremor more on the right than left especially with patient attempting to get out of bed. Psych: Flattened affect and depressed mood. Patient did not answer questions appropriately searching for responses. No abnormal thought processes manifested. Remote and recent memory not testable with encephalopathy. Results Imaging Imaging Studies: Exam: CT Head Without And With Contrast Exam date and time: 07/21/2024 6:51 PM Age: 79 years old Clinical indication: Other: AMS; Additional info: HX brain tumor TECHNIQUE: Imaging protocol: Computed tomography of the head without and with contrast. Contrast material: OMNIPAQUE 350; Contrast volume: 100 ml; Contrast route: INTRAVENOUS (IV); COMPARISON: MR BRAIN WO/W 06/08/2024 9:58 AM FINDINGS: Brain: A 6 cm ovoid resection cavity is again seen involving the mid to anterior right temporal lobe and extends to the lateral margins of the temporal horn and trigone of the right lateral ventricle, similar in appearance. Postcontrast images again demonstrate irregular heterogeneous enhancement extending from the anterior margins of the resection cavity into the anterior right temporal tip concerning for residual/recurrent tumor. Cerebral sulci show bilateral symmetry throughout the remainder of both hemispheres with no other supratentorial mass or mass effect detected. Brainstem and cerebellum are unremarkable. There is no evidence of acute transcortical infarction or recent intracranial hemorrhage. Cerebral ventricles: No significant midline shift or hydrocephalus. Paranasal sinuses: Grossly clear throughout. Mastoid air cells: Grossly clear bilaterally. Bones: Stable right-sided craniotomy defect with no acute osseous lesions detected. Soft tissues: Unremarkable. IMPRESSION: 1. A 6 cm ovoid resection cavity is again seen involving the mid to anterior right temporal lobe and extends to the lateral margins of the temporal horn and trigone of the right lateral ventricle, similar in appearance. Postcontrast images again demonstrate irregular heterogeneous enhancement extending from the anterior margins of the resection cavity into the anterior right temporal tip concerning for residual/recurrent tumor. 2. Cerebral sulci show bilateral symmetry throughout the remainder of both hemispheres with no other supratentorial mass or mass effect detected. There is no evidence of acute transcortical infarction or recent intracranial hemorrhage. Labs 07/22/24 05:44 07/22/24 05:44 Labs: Laboratory Results - last 24 hr 07/21/24 07/21/24 18:23 20:54 WBC 5.49 RBC 4.19 L Hgb 13.7 Hct 40.1 MCV 96 H MCH 32.7 MCHC 34.2 RDW 12.2 Plt Count 156 MPV 9.2 Immature Gran % 0.2 Neutrophils % 57.9 Lymphocytes % 25.9 Monocytes % 14.0 Eosinophils % 1.5 Basophils % 0.5 Nucleated RBC % 0.0 Absolute Neutrophils 3.18 Absolute Lymphocytes 1.42 Absolute Monocytes 0.77 Absolute Eosinophils 0.08 Absolute Basophils 0.03 PT 11.0 INR 1.1 Sodium 145 Potassium 3.8 Chloride 108 H Carbon Dioxide 30.8 Anion Gap 6.2 BUN 24 H Creatinine 1.0 Est GFR (CKD-EPI 2020) 77.52 Glucose 96 Calcium 9.3 Magnesium 2.3 Total Bilirubin 0.6 AST 17 ALT 30 Alkaline Phosphatase 87 Total Protein 6.9 Albumin 4.0 TSH 2.81 Urine Color Yellow Urine Clarity Clear Urine pH 6.5 Ur Specific [place] 1.015 Urine Protein Negative Urine Ketones Negative Urine Blood Negative Urine Nitrite Negative Urine Bilirubin Negative Urine Urobilinogen 0.2 Ur Leukocyte Esterase Negative Urine Glucose Negative Last Vital Signs Pulse 59 L 07/21/24 21:01 Resp 17 07/21/24 21:10 BP 165/75 H 07/21/24 21:01 Pulse Ox 96 07/21/24 21:01 Time Spent Time spent with Patient: >75 minutes Time was spent: preparing to see the patient(eg.review tests), obtaining and/or reviewing separately otained hiistory, ordering medications,tests, procedures, referring, communicating with other health critical care unit manager, indepentently interpreting results and care coordination
[2024-07-22] VITALS (17 sets, daily range): BP systolic 148–163; BP diastolic 62–84; PULSE 48–83; RESP 11–24; TEMP 36.4–37.2; O2SAT 94–98
--- NOTE | 2024-07-22 00:30 | W.PC.ACHO ---
Registration Status: Primary Language: Preferred Language: ED Information & Data Chief Complaint AMS/LOC 07/21/24 19:16 Triage Note AMS, increased confusion 07/21/24 18:09 since wednesday, increased tremors, shuffling feet while walking, gets lost in the house, does not feel like he is safe at home anymore HX Brain tumor Medical / Surgical History (Last Reviewed 07/21/24 @ 22:06 by Aquiles Ruiz) Hyponatremia (~01/2023) Migraine (09/28/11) Lumbar disc herniation with radiculopathy Lumbar radiculopathy, chronic Tobacco use disorder (02/15/17) Adenoma of large intestine (12/12/11) (Last Reviewed 07/21/24 @ 22:06 by Aquiles Ruiz) S/P brain surgery (~10/2023) H/O laminectomy (~12/18/20) laminectomy (03/09/17) Arthroplasty of knee (11/13/05) Most Recent Vital Signs Temperature 36.8 C 07/21/24 23:29 Pulse 52 L 07/21/24 22:55 Pulse 53 L 07/21/24 18:46 Respiratory Rate 14 07/21/24 22:55 Respiratory Effort Normal 07/21/24 23:29 Respiratory Depth Normal 07/21/24 23:29 Respiratory Pattern Normal 07/21/24 23:29 Blood Pressure 185/75 H 07/21/24 22:46 Blood Pressure Mean 103 07/21/24 18:46 Pulse Oximetry 95 07/21/24 23:29 Oxygen Delivery Method Room Air 07/21/24 23:29 Oxygen Flow Rate 0 07/21/24 23:29 Allergies Sulfa (Sulfonamide Antibiotics) Adverse Reaction (Unknown, Unverified 07/21/24 20:08) Other (See Comment) Patient states many years ago (in middle school) found during allergy testing Precautions Isolation Standard precaution 07/21/24 18:32 Active Medications Generic Name Dose Route Start Last Admin Trade Name Freq PRN Reason Stop Dose Admin Sodium Chloride 0 ml 07/21/24 20:00 07/21/24 23:50 Normal Saline Flush 10 Ml Syr IVP Not Given BID REYNA Diet Orders Category Date Time Status Heart Healthy Eating [DIET] Nutrition 07/22/24 Breakfast Active Diagnostics 07/22/24 07/21/24 07/21/24 Range/Units 05:35 23:24 22:33 WBC Pending (4.4-10.8) 10^3/uL RBC Pending (4.36-5.78) 10^6/uL Hgb Pending (13.5-17.5) g/dL Hct Pending (40.0-50.0) % MCV Pending (80-95) fL MCH Pending (27.0-33.0) pg MCHC Pending (32.0-36.0) % RDW Pending (11.8-14.1) % Plt Count Pending (130-400) 10^3/uL MPV Pending (8.0-11.0) fL Immature Gran % % Neutrophils % % Lymphocytes % % Monocytes % % Eosinophils % % Basophils % % Nucleated RBC % (0.0-0.3) % Absolute Neutrophils (1.2-6.7) 10^3/uL Absolute Lymphocytes (1.2-3.4) 10^3/uL Absolute Monocytes (0.1-0.8) 10^3/uL Absolute Eosinophils (0.0-0.7) 10^3/uL Absolute Basophils (0.0-0.2) 10^3/uL PT Pending (9.1-11.1) sec INR Pending (0.9-1.1) Sodium Pending (136-145) mmol/L Potassium Pending (3.5-5.1) mmol/L Chloride Pending (98-107) mmol/L Carbon Dioxide Pending (21.0-32.0) mmol/L Anion Gap Pending (3-11) mmol/L BUN Pending (7-18) mg/dL Creatinine Pending (0.70-1.30) mg/dL Est GFR (CKD-EPI 2020) Pending (mL/min/1.73m2) Glucose Pending (74-106) mg/dL Calcium Pending (8.5-10.1) mg/dL Magnesium Pending (1.8-2.4) mg/dL Total Bilirubin Pending (0.2-1.0) mg/dL AST Pending (15-37) U/L ALT Pending (16-63) U/L Alkaline Phosphatase Pending (46-116) U/L Total Protein Pending (6.4-8.2) g/dL Albumin Pending (3.4-5.0) g/dL TSH (0.36-3.74) uIU/mL Urine Color (Yellow) Urine Clarity (Clear) Urine pH (5-8) Ur Specific [place] (1.005-1.025) Urine Protein (Neg-Trace) mg/dL Urine Ketones (Negative) mg/dL Urine Blood (Negative) Urine Nitrite (Negative) Urine Bilirubin (Negative) Urine Urobilinogen (Up to 0.2) mg/dL Ur Leukocyte Esterase (Negative) Urine Glucose (Negative) mg/dL Levetiracetam COVID-19 Source Pending SARS-CoV-2 (PCR) Pending Influenza Type A (PCR) Pending Influenza Type B (PCR) Pending RSV (PCR) Pending 07/21/24 07/21/24 Range/Units 20:54 18:23 WBC 5.49 (4.4-10.8) 10^3/uL RBC 4.19 L (4.36-5.78) 10^6/uL Hgb 13.7 (13.5-17.5) g/dL Hct 40.1 (40.0-50.0) % MCV 96 H (80-95) fL MCH 32.7 (27.0-33.0) pg MCHC 34.2 (32.0-36.0) % RDW 12.2 (11.8-14.1) % Plt Count 156 (130-400) 10^3/uL MPV 9.2 (8.0-11.0) fL Immature Gran % 0.2 % Neutrophils % 57.9 % Lymphocytes % 25.9 % Monocytes % 14.0 % Eosinophils % 1.5 % Basophils % 0.5 % Nucleated RBC % 0.0 (0.0-0.3) % Absolute Neutrophils 3.18 (1.2-6.7) 10^3/uL Absolute Lymphocytes 1.42 (1.2-3.4) 10^3/uL Absolute Monocytes 0.77 (0.1-0.8) 10^3/uL Absolute Eosinophils 0.08 (0.0-0.7) 10^3/uL Absolute Basophils 0.03 (0.0-0.2) 10^3/uL PT 11.0 (9.1-11.1) sec INR 1.1 (0.9-1.1) Sodium 145 (136-145) mmol/L Potassium 3.8 (3.5-5.1) mmol/L Chloride 108 H (98-107) mmol/L Carbon Dioxide 30.8 (21.0-32.0) mmol/L Anion Gap 6.2 (3-11) mmol/L BUN 24 H (7-18) mg/dL Creatinine 1.0 (0.70-1.30) mg/dL Est GFR (CKD-EPI 2020) 77.52 (mL/min/1.73m2) Glucose 96 (74-106) mg/dL Calcium 9.3 (8.5-10.1) mg/dL Magnesium 2.3 (1.8-2.4) mg/dL Total Bilirubin 0.6 (0.2-1.0) mg/dL AST 17 (15-37) U/L ALT 30 (16-63) U/L Alkaline Phosphatase 87 (46-116) U/L Total Protein 6.9 (6.4-8.2) g/dL Albumin 4.0 (3.4-5.0) g/dL TSH 2.81 (0.36-3.74) uIU/mL Urine Color Yellow (Yellow) Urine Clarity Clear (Clear) Urine pH 6.5 (5-8) Ur Specific [place] 1.015 (1.005-1.025) Urine Protein Negative (Neg-Trace) mg/dL Urine Ketones Negative (Negative) mg/dL Urine Blood Negative (Negative) Urine Nitrite Negative (Negative) Urine Bilirubin Negative (Negative) Urine Urobilinogen 0.2 (Up to 0.2) mg/dL Ur Leukocyte Esterase Negative (Negative) Urine Glucose Negative (Negative) mg/dL Levetiracetam Pending COVID-19 Source SARS-CoV-2 (PCR) Influenza Type A (PCR) Influenza Type B (PCR) RSV (PCR) [id number] Documentation Fingerstick Glucose Start: 07/21/24 18:27 Freq: Status: Active Protocol: Activity Type Activity Date Activity User E-sign Co-sign Detail Recorded Client Recorded Date Recorded By Document 07/21/24 18:09 WILEY SAMSON(3) [id number] 07/21/24 18:27 WILEY SAMSON(4) Intake and Output - 24 Hour Total 07/21/24 18:00 thru 07/21/24 23:29 Weight 73.9 kg Falls Risk Assessment History of Falls Previous History 07/21/24 23:29 Contributing Factors Confusion,Impairments 07/21/24 23:29 Ambulatory Aids Independent 07/21/24 23:29 Tubes/Lines With any additional score 07/21/24 23:29 Gait Evaluation W/any additional score 07/21/24 23:29 Cognition Cognitive impairment 07/21/24 23:29 Fall Total Score 76 07/21/24 23:29 Level of Risk Maximum Risk 07/21/24 23:29 Problems (Last Reviewed 07/21/24 @ 22:06 by Aquiles Ruiz) Encephalopathy acute (Acute) Glioblastoma multiforme (Chronic ~10/2023) Impaired gait and mobility (Chronic ~10/2023) Hyperlipidemia, unspecified (Chronic) Hypothyroidism (Chronic 08/20/10) v v v v v v v v v Sending and/or Receiving Nurses: Please use comment section below to note any information pertinent to the patient hand-off not included above. Information / Comments: Report received from: Doug Umaña RN
[2024-07-22 01:39] LABS: COVID-19 PCR Negative (Negative); Influenza A PCR Negative (Negative); Influenza B PCR Negative (Negative); RSV PCR Negative (Negative)
[2024-07-22 02:07] LABS: Source Nasopharynx
[2024-07-22] MEDS: Levothyroxine 75 MCG TAB PO (06:27)
[2024-07-22 06:38] LABS: HCT 38.7 % (40.0-50.0); HGB 13.5 g/dL (13.5-17.5); MCH 32.5 pg (27.0-33.0); MCHC 34.9 % (32.0-36.0); MCV 93 fL (80-95); MPV 9.5 fL (8.0-11.0); Platelet Count 152 10^3/uL (130-400); RBC 4.16 10^6/uL (4.36-5.78); RDW 12.1 % (11.8-14.1); RDW-SD 41.8 fL; WBC 6.27 10^3/uL (4.4-10.8)
[2024-07-22 06:52] LABS: ALT 30 U/L (16-63); AST 14 U/L (15-37); Albumin 3.8 g/dL (3.4-5.0); Alkaline Phosphatase 76 U/L (46-116); Anion Gap 9.8 mmol/L (3-11); BUN 20 mg/dL (7-18); Bilirubin, Total 1.1 mg/dL (0.2-1.0); CO2 31.2 mmol/L (21.0-32.0); CREATININE 0.9 mg/dL (0.70-1.30); Calcium 9.3 mg/dL (8.5-10.1); Chloride 105 mmol/L (98-107); Estimated GFR 87.96 (mL/min/1.73m2); Glucose 101 mg/dL (74-106); Magnesium 2.2 mg/dL (1.8-2.4); Potassium 3.6 mmol/L (3.5-5.1); Sodium 146 mmol/L (136-145); Total Protein 6.6 g/dL (6.4-8.2)
[2024-07-22 06:58] LABS: INR 1.1 (0.9-1.1); Prothrombin Time 10.9 sec (9.1-11.1)
[2024-07-22] MEDS: levETIRAcetam 500 MG TAB PO (07:57)
[2024-07-22] MEDS: Atorvastatin 10 MG TAB PO (07:57)
[2024-07-22] MEDS: Pantoprazole 40 MG TABCR PO (07:57)
[2024-07-22] MEDS: Enoxaparin 40 MG/0.4 ML SYR SC (07:57)
[2024-07-22] MEDS: Fludrocortisone 0.1 MG TAB 0.05 MG PO (07:58)
[2024-07-22] MEDS: Normal Saline Flush 10 ML SYR IVP (08:01)
--- NOTE | 2024-07-22 08:40 | PDOC.CMIN ---
Date of service: 07/22/24 Time of Service: 08:40 Care Management Initial Assmt Initial Assessment Reason for Hospitalization: worsening altered mental status and confusion Functional Status/Living Situation Patient Presentation: Trever has a hx of glioblastoma, for which he is currently receiving treatment. He presented to the ED yesterday evening with reports of increased confusion and difficulty caring for himself and a shuffling gait. [facility] was consulted. Trever was sitting up in bed, he was very pleasant, but also very confused. His , Shaina, was present. Shaina had many concerns about how to care for Trever going forward. She does not feel that she can care for Eddie at home in this state. Shaina and Eddie were to meet with hospice on Wednesday. Hospice was notified of Eddie's transfer to [facility]. CM discussed STR, HH and community supports. Shaina was appreciative of the support. Later in the day, Trever got a bed at [facility]. Shaina did not know how to proceed. She was encouraged by CM to speak with the Assistant Basketball Coach on Eddie's unit. CM also contacted the managed care analyst at [facility] (Eddie's PCP) for an update. Town of Residence: [place] Resides with: Spouse (Lisa) Significant Other/Family: Local (2 children and 4 grandchildren) Natural Supports: family Employment Status: Retired (worked as an RN) Instrumental Activities of Daily Living (ADLs): Requires support (newly requiring support with all ADLs) Activities/Hobbies/SocialSupport: Is very physically active when well. Enjoys his family. Medications Medication Management: No Issues/Barriers identified Physical Functioning/Mobility Assistive Device: FWW Advance Directives Advance Directives: Do you have an Advance Directive: N 01/06/19 10:45 AD On File at [facility]: N 01/06/19 10:45 Date Asked 07/21/24 07/21/24 22:49 AD Date Reviewed COLST On File at [facility] COLST Date Scanned Code Status Resuscitation Status Full Code Portal Pt does not currently have a portal and education provided: Yes Insurance Coverage/Financial Issues Insurance: Medicare Part A & B - [employer]ET[employer] Senior [facility] Care Team Visit Care Team Role Provider Type Jorge Luis Argueta MD MD [facility] STAFF PHYSICIAN Shanta Snyder NP Primary Care Provider NURSE PRACTITIONER In[facility] Other Providers OTHER Rose Otto MD Emergency Provider [facility] STAFF PHYSICIAN Aquiles Ruiz Admit Provider NON-[facility] STAFF PHYSICIAN Attending Provider Other: [facility] oncology Discharge Potential Discharge Needs: PT Evaluation, PCP F/U Appt and Other (oncology f/u) Anticipated Barriers to Discharge: None Identified Patient/Family Education Needs: Review discharge instructions, discuss Ask Me Three Transportation: EMS Plan: Eddie was transferred to [facility] for further care. He transported via EMS. Social Determinants of Health Screening Will the Patient Participate in the Screening?: Unable to obtain Comments: Patient is not currently mentally competent enough to answer the survey. PFSH All Active Problems Encephalopathy (Acute) Encephalopathy acute (Acute) Glioblastoma multiforme (Chronic ~10/2023) Impaired gait and mobility (Chronic ~10/2023) r/t brain mass (GBM); uses walker Decreased range of motion of neck (Acute ~01/2023) Metabolic syndrome (Chronic) Hyperlipidemia, unspecified (Chronic) 06/2018 labs: good response to moderate potency statin, continue Abnormal ECG (Chronic 09/28/11) intraventricular conduction abnl on EKG Hypothyroidism (Chronic 08/20/10) DX 08/2010, HUGE IMPROVEMENT WITH RX IN ENERGY Lumbar stenosis (Chronic 12/31/16) Pain and spine note 01/16/21: Spinal stenosis of lumbar region with neurogenic claudication IFG (impaired fasting glucose) (Chronic) Medical History Hyponatremia (~01/2023) Migraine (09/28/11) OCC IBUPROFEN; CAFFEINE H/A 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 Diabetes Resolved with LSMs Father , CVA Dementia Heart disease h/o [place], CABG Myocardial infarction Stroke Sister Age: 76 Obese Social History Smoking/Tobacco Use Status: Former Tobacco Use tobacco type: cigarettes Quit Date: 04/12/71 Quit status: quit date established Smoking risk assessment performed?: Yes Alcohol Intake: current Alcohol Intake frequency: holidays/special occasions only Drug use: Never Substance use type: does not use Counseling given: No Adopted: No Caregiver/Support person: No Foster care: No Household members: spouse Housing: house Number of Children: 2 number of grandchildren: 4 Communication Needs: Corrective Lenses Education Level: college Details: Bachelors Do you need help understanding health information?: Never current occupation: Retired Nurse Pets and animals: No Sexually active: Yes Do you think of yourself as: straight/heterosexual Current gender identity: male What is your relationship status?: How often do you talk on the phone with friends or family?: three or more times per week How often do you get together with friends or relatives?: once per week How often do you attend mormon or christian services?: 1-3 times per year Do you belong to any clubs or organized social groups?: no Panel score (0-1 are the most socially isolated patients): 2 What type of physical activity do you participate in: walking, bicycling and other Details: Active during day, skiing, isometric Duration: 60-90 minutes/day Frequency: daily Jerrica/Cheondoism: Presybeterian Seatbelt use: always Helmet use: Yes Helmet use: always Drive intox or ride w/intox tow driver: No Water heater temp set <120 deg: Yes Working smoke detector in home: Yes Fire extinguisher in home: Yes Carbon monox detector in home: Yes Firearms in home: Yes Firearms unloaded and locked: Yes Do you feel safe at home: Yes Do you feel safe in your relationship?: Yes Victim of physical abuse: No Victim of emotional abuse: No Victim of sexual abuse: No Readmission Within the Past 30 Days Yes or No: No
--- NOTE | 2024-07-22 09:11 | NUR.NOTE ---
Access chart to get status of pt for [facility] transfer center. Nursing Note:
--- NOTE | 2024-07-22 12:55 | IN_ITS ---
PT Notes Visit Reasons: Subacute encephalopathy, Glioblastoma Physical Therapy Inpatient Initial Evaluation Date: 07/22/2024 Referring Doctor: Aquiles Ruiz MD PT Orders: PT CONSULT: Exacerbation Chronic Cond Precautions: Fall. Standard. Activity as tolerated. Patient Profile/Admitting Diagnosis: Eddie is a 79-year-old male with past medical history significant for glioblastoma multiforme status post resection who presented to the ED with chief signs/symptoms of increased confusion, increased feeding difficulty, and worsening shuffling gait. He s admitted for evaluation and management of acute encephalopathy, impaired gait and mobility, hyponatremia, hyperlipidemia, and hypothyroidism. PMHX: All Active Problems Encephalopathy (Acute) Encephalopathy acute (Acute) Glioblastoma multiforme (Chronic ~10/2023) Impaired gait and mobility (Chronic ~10/2023) r/t brain mass (GBM); uses walker Decreased range of motion of neck (Acute ~01/2023) Metabolic syndrome (Chronic) Hyperlipidemia, unspecified (Chronic) 06/2018 labs: good response to moderate potency statin, continue Abnormal ECG (Chronic 09/28/11) intraventricular conduction abnl on EKG Hypothyroidism (Chronic 08/20/10) DX 08/2010, HUGE IMPROVEMENT WITH RX IN ENERGY Lumbar stenosis (Chronic 12/31/16) Pain and spine note 01/16/21: Spinal stenosis of lumbar region with neurogenic claudication IFG (impaired fasting glucose) (Chronic) Medical History Hyponatremia (~01/2023) Migraine (09/28/11) OCC IBUPROFEN; CAFFEINE H/A 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 Unable to extract further hisotroy due to patient's impaired cognitive level/recall. Equipment Owned/DME: Unknown at this time Subjective: Agreeable to being moved out of bed. Objective: General Observation: Resting in bed, Nurse Fiona in room enagging patient in conversation. Telemetry monitoring in place. IV access through right UE. Mental Status: Alert and oriented as to person. Able to follow single step commands. Pain: Verbalized pain in back that did not increase throughout session Vital Signs: Closely monitored via tele ROM: Right Upper Extremity: Shoulder Flexion WFL. Shoulder abduction WFL. Elbow flexion WFL. Wrist flexion WFL. Functional opening and closing of hand WFL. Left Upper Extremity: Shoulder Flexion WFL. Shoulder abduction WFL. Elbow flexion WFL. Wrist flexion WFL. Functional opening and closing of hand WFL. Right Lower Extremity: Hip flexion WFL. Hip abduction WFL. Knee flexion WFL. Ankle dorsiflexion WFL. Ankle plantarflexion WFL. Left Lower Extremity: Hip flexion WFL. Hip abduction WFL. Knee flexion WFL. Ankle dorsiflexion WFL. Ankle plantarflexion WFL. Strength: Right Upper Extremity: Grossly 3-/5 Left Upper Extremity: Grossly 3-/5 Right Lower Extremity: Grossly 3-/5 Left Lower Extremity: Grossly 3-/5 Bed Mobility/Transfers: Moderate cueing provided for use of B hands as needed for support, movement sequence, AD management, and posture to reduce fall risk and minimize pain report Rolling moderate assist Supine to sit moderate assist Sit to stand moderate assist with FWW Stand to sit moderate assist with FWW Bed to bedside commode moderate assist with FWW. Nurse Biggs provided stand by assist for transfers Bedside commode to bed moderate assist with FWW. Nurse iBggs provided stand by assist for transfers Bedside commode to reclining chair moderate assist with FWW. Nurse Biggs provided stand by assist for transfers Pericare after bowel movement dependent. Nurse Lynn provided needed assist during pericare for safety. Gait: Completed in-room ambulation from edge of bed to bedside commode to defecate and then from bedside commode onto bedside recliner using FWW for a total of about 10 small shuffling discontinuous steps. Balance: Static Sitting: Normal Dynamic Sitting: Normal Static Standing: Fair Dynamic Standing: Fair Special Tests: Mobility Limitations Standardized Measure [facility] AM-PAC 6 clicks Basic Mobility Inpatient Short Form: Raw Score: 12 CMS Score: 69% deficit Informed Consent/Education: Patient was instructed in purpose of PT consult and plan of care. Agreeable to proceed with established PT POC to achieve personal goals. Assessment: Significant strength limitation, functional mobility as well as cognitive decline all decrease ability of patient to safely thrive at home with who has been unable to provided the needed level of care at home for her . Patient presents with clinical signs and symptoms consistent with current/admitting diagnoses that have resulted to mobility limitations, gait instability, generalized weakness, and overall ADL decline as demonstrated by the following impairment level findings: 1. Decreased strength to B UE/LE major muscle groups 2. Impaired sitting/standing balance 3. Impaired activity tolerance 4. Limitation of joint range of motion in B UE/LE 5. Fatigue 6. Intentional tremors in B UE Impairments are contributing to the following functional limitations: 1. Decline in bed mobility skills 2. Decline in transfer skills 3. Difficulty with ambulation without assistive device and physical assistance 4. Increased completion time for mobility ADL performance 5. Increased risk for falls 6. Difficulty with managing steps alone safely Patient is assessed as a 69635 moderate complexity based on the following: History: 79-year-old female with past medical history as indicated above Examination: Demonstrable impairment in strength, balance, and mobility level with underlying impairments and functional limitations as exhibited above as well as deficit score of 69% utilizing the [facility] Mobility Inpatient Short Form Presentation: Evolving Decision Makin moderate complexity Goals: Goals X1 week 1. Supine-Sit independent 2. Sit-Supine independent 3. Sit-Stand independent 4. Stand-Sit independent with [] 5. Bed-Chair independent with [] 6. Chair-Bed independent with [] 7. Independent gait on level surface with use of [] for at least [] feet without report of pain nor dyspnea 8. Independent stair negotiation while holding onto [] rails for at least [] steps without report of pain nor dyspnea 9. Independent with home exercise program 10. Good static and dynamic standing balance/tolerance Plan of Care/Treatment Plan: 1-2x/day, 7 days/week x 1 week. Plan of care has been reviewed with the DOCUMENT MANAGEMENT SPECIALIST providing the service under Physical Therapy direction. Initiate Physical Therapy intervention for pain management as needed, strengthening, bed mobility, transfers, gait, stairs, balance training, and use of assistive device. DISCHARGE RECOMMENDATIONS: [] Home with no services [] [] Home with services [specify] [] Home with outpatient PT [] [] SNF for continued rehabilitation [] [] [employer] [facility] [] [X] SNF versus LTC based on ability to participate and progress towards goals TREATMENT CODE/TIME: 32836 x 25 minutes, 05209 x 32 minutes for one fourth 2 units (12: 55?13: 54). Thank you for the opportunity to participate in the care of this patient. Florecita Brink PT, DPT, CLT [facility] [place], [place]
--- NOTE | 2024-07-22 15:56 | W.PM.DS.N ---
Date of service: 07/22/24 Time of Service: 15:56 DS: Diagnosis Discharge Diagnosis (1) Encephalopathy acute: Status: Acute (2) Glioblastoma multiforme: Status: Chronic (3) Impaired gait and mobility: Status: Chronic (4) Hyponatremia: (5) Hyperlipidemia, unspecified: Status: Chronic (6) Hypothyroidism: Status: Chronic Discharge Plan Disposition Patient Disposition: Transfer-Acute Inpatient Care Specific Acute Inpt Facility: [facility] Condition: Fair Discharge Details Reason For Visit: Subacute encephalopathy, Glioblastoma Admit Date/Time: 07/21/24 22:33 Admit Provider: Aquiles Ruiz Attending Provider: Aquiles Ruiz Primary Care Provider: Shanta Snyder Hospital Course Hospital Course: Patient initially presented with worsening confusion in the setting of known possible worsening glioblastoma s/p resection as seen on recent MRI and head CT in the ED. Patient normally Aox3 but had worsening confusion over the last few weeks. No infectious or metabolic causes were found, and while in the ED [facility] [place] was consults and recommended MRI and EEG (neither of which are available at [facility] over the weekend). On the morning of 07/22/2024 [facility] Hospitalist reached back out and stated that they would be able to accept the patient for transfer. Ultimately, given the complexity and Neurosurgical nature of the patients underlying problem it was determined that he was stable for transfer to [facility] [place] further treatment and evaluation. Home Meds and New Rx's Prescriptions: No Action pantoprazole 40 mg tablet,delayed release (DR/EC) 40 mg PO DAILY Rx Instructions: While taking steroids levetiracetam [Keppra] 500 mg tablet 500 mg PO BID Rx Instructions: Take 1 tab po bid fludrocortisone 0.1 mg tablet 0.05 mg PO DAILY Rx Instructions: Take 0.05mg po daily quetiapine [Seroquel] 50 mg tablet 50 mg PO QHS PRN sennosides-docusate sodium [Senna with Docusate Sodium] 8.6-50 mg tablet 2 tab-cap PO BID PRN sodium chloride 1 gram tablet 3,000 mg PO TID acetaminophen 500 mg tablet 1,000 mg PO Q8H PRN PRN glucosamine sulfate 500 mg tablet 500 mg PO DAILY Rx Instructions: administer with a meal Ihmw-Hudd-Gpsne (ka-OM-pfmfmc) 400-2,000 mcg tablet 1 tab PO QDAY Co Q-10 300 MG capsule 300 mg PO DAILY levothyroxine 75 mcg tablet See Rx Instructions .ROUTE .COMPLEX Qty: 90 3RF Dose Instruction: TAKE 1 TABLET DAILY AT LEAST 30 TO 60 MINUTES BEFORE FIRST MEAL OF THE DAY Rx Instructions: TAKE 1 TABLET DAILY AT LEAST 30 TO 60 MINUTES BEFORE FIRST MEAL OF THE DAY atorvastatin 10 mg tablet See Rx Instructions .ROUTE .COMPLEX Qty: 90 3RF Dose Instruction: TAKE 1 TABLET DAILY Rx Instructions: TAKE 1 TABLET DAILY lorazepam 0.5 mg tablet Patient Comments: TAKE ONE TABLET BY MOUTH EVERY 8 HOURS NEEDED FOR ANXIETY sodium chloride 1,000 mg tablet,soluble Patient Comments: TAKE THREE TABLETS BY MOUTH THREE TIMES EVERY DAY Discharge Instructions Activity:: Activity as Tolerated Equipment/Supplies:: No Equipment Needed Diet:: As Tolerated Discharge Orders Discharge Orders: Discharge Order (Routine); Ordered 07/22/24 Ordered By: Jorge Luis Argueta DS: Summary Time Spent with Patient providing and/or coordinating discharge services: Greater than 30 minutes Status at Discharge Functional status at discharge: independent ambulation Overall status at discharge: patient is back to baseline Mental Status: mental status grossly normal Speech and Movement: speech and movement normal Mood: congruent mood Affect: normal affect Quality:SDOH Health Related Social Needs: Health related social needs problems with daily activities (Z73.9) Health related social needs details Lisa (spouse) reported that she needs help with pt's ADL's at home. Health related social needs details: Lisa (spouse) reported that she needs help with pt's ADL's at home. Exam Narrative Exam Narrative: chronically ill appearing older gentleman sitting up in the chair in no acute distress, awake, alert, oriented to person only, heart RRR, lungs CTAB, abdomen soft, non-tender, non-distended, no focal neurological deficits noted Psych Mental Status: mental status grossly normal Speech and Movement: speech and movement normal Mood: congruent mood Affect: normal affect DS: Data Vitals/I&O Vitals and I&O: Vital Signs Temperature 98.8 F 07/22/24 15:03 Temperature Source Temporal Artery Scan 07/22/24 15:03 Pulse 72 07/22/24 15:03 Pulse 55 L 07/22/24 10:00 Respiratory Rate 14 07/22/24 11:29 Respiratory Effort Normal 07/21/24 23:29 Respiratory Depth Normal 07/21/24 23:29 Respiratory Pattern Normal 07/21/24 23:29 Blood Pressure 153/62 H 07/22/24 15:03 Blood Pressure Mean 104 07/22/24 11:29 Pulse Oximetry 98 07/22/24 15:03 Oxygen Delivery Method Room Air 07/22/24 15:03 Oxygen Flow Rate 0 07/22/24 15:03 Pain Level 0 07/22/24 15:03 Intake & Output 07/21/24 07/22/24 07/22/24 17:59 05:59 17:59 Intake Total 300 / 300 100 / 100 Output Total 225 / 225 475 / 475 Balance 75 / 75 -375 / -375 Weight 162 lb 14.746 oz Intake: Oral 300 / 300 100 / 100 Output: Urine 225 / 225 475 / 475 Other: Urine Color Yellow Yellow Urine Appearance Clear Clear Urine Odor None None Comment darkish yellow Stool Size Large Stool Characteristics Soft Formed Data Completed and Pending Labs on day of discharge: Labs from last 24 hours 07/22/24 07/22/24 07/21/24 05:44 00:00 20:54 WBC 6.27 RBC 4.16 L Hgb 13.5 Hct 38.7 L MCV 93 MCH 32.5 MCHC 34.9 RDW 12.1 Plt Count 152 MPV 9.5 Immature Gran % Neutrophils % Lymphocytes % Monocytes % Eosinophils % Basophils % Nucleated RBC % Absolute Neutrophils Absolute Lymphocytes Absolute Monocytes Absolute Eosinophils Absolute Basophils PT 10.9 INR 1.1 Sodium 146 H Potassium 3.6 Chloride 105 Carbon Dioxide 31.2 Anion Gap 9.8 BUN 20 H Creatinine 0.9 Est GFR (CKD-EPI 2020) 87.96 Glucose 101 Calcium 9.3 Magnesium 2.2 Total Bilirubin 1.1 H AST 14 L ALT 30 Alkaline Phosphatase 76 Total Protein 6.6 Albumin 3.8 TSH Urine Color Yellow Urine Clarity Clear Urine pH 6.5 Ur Specific [place] 1.015 Urine Protein Negative Urine Ketones Negative Urine Blood Negative Urine Nitrite Negative Urine Bilirubin Negative Urine Urobilinogen 0.2 Ur Leukocyte Esterase Negative Urine Glucose Negative Levetiracetam COVID-19 Source Nasopharynx SARS-CoV-2 (PCR) Negative Influenza Type A (PCR) Negative Influenza Type B (PCR) Negative RSV (PCR) Negative 07/21/24 18:23 WBC 5.49 RBC 4.19 L Hgb 13.7 Hct 40.1 MCV 96 H MCH 32.7 MCHC 34.2 RDW 12.2 Plt Count 156 MPV 9.2 Immature Gran % 0.2 Neutrophils % 57.9 Lymphocytes % 25.9 Monocytes % 14.0 Eosinophils % 1.5 Basophils % 0.5 Nucleated RBC % 0.0 Absolute Neutrophils 3.18 Absolute Lymphocytes 1.42 Absolute Monocytes 0.77 Absolute Eosinophils 0.08 Absolute Basophils 0.03 PT 11.0 INR 1.1 Sodium 145 Potassium 3.8 Chloride 108 H Carbon Dioxide 30.8 Anion Gap 6.2 BUN 24 H Creatinine 1.0 Est GFR (CKD-EPI 2020) 77.52 Glucose 96 Calcium 9.3 Magnesium 2.3 Total Bilirubin 0.6 AST 17 ALT 30 Alkaline Phosphatase 87 Total Protein 6.9 Albumin 4.0 TSH 2.81 Urine Color Urine Clarity Urine pH Ur Specific [place] Urine Protein Urine Ketones Urine Blood Urine Nitrite Urine Bilirubin Urine Urobilinogen Ur Leukocyte Esterase Urine Glucose Levetiracetam Pending COVID-19 Source SARS-CoV-2 (PCR) Influenza Type A (PCR) Influenza Type B (PCR) RSV (PCR) PFSH All Active Problems Encephalopathy (Acute) Encephalopathy acute (Acute) Glioblastoma multiforme (Chronic ~10/2023) Impaired gait and mobility (Chronic ~10/2023) r/t brain mass (GBM); uses walker Decreased range of motion of neck (Acute ~01/2023) Metabolic syndrome (Chronic) Hyperlipidemia, unspecified (Chronic) 06/2018 labs: good response to moderate potency statin, continue Abnormal ECG (Chronic 09/28/11) intraventricular conduction abnl on EKG Hypothyroidism (Chronic 08/20/10) DX 08/2010, HUGE IMPROVEMENT WITH RX IN ENERGY Lumbar stenosis (Chronic 12/31/16) Pain and spine note 01/16/21: Spinal stenosis of lumbar region with neurogenic claudication IFG (impaired fasting glucose) (Chronic) Medical History Hyponatremia (~01/2023) Migraine (09/28/11) OCC IBUPROFEN; CAFFEINE H/A 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 Diabetes [facility] Father , CVA Dementia Heart disease h/o [place], CABG Myocardial infarction Stroke Sister Age: 76 Obese Social History Smoking/Tobacco Use Status: Former Tobacco Use tobacco type: cigarettes Quit Date: 04/12/71 Quit status: quit date established Smoking risk assessment performed?: Yes Alcohol Intake: current Alcohol Intake frequency: holidays/special occasions only Drug use: Never Substance use type: does not use Counseling given: No Adopted: No Caregiver/Support person: No Foster care: No Household members: spouse Housing: house Number of Children: 2 number of grandchildren: 4 Communication Needs: Corrective Lenses Education Level: college Details: Bachelors Do you need help understanding health information?: Never current occupation: Retired Nurse Pets and animals: No Sexually active: Yes Do you think of yourself as: straight/heterosexual Current gender identity: male What is your relationship status?: How often do you talk on the phone with friends or family?: three or more times per week How often do you get together with friends or relatives?: once per week How often do you attend shinto or gnosticism services?: 1-3 times per year Do you belong to any clubs or organized social groups?: no Panel score (0-1 are the most socially isolated patients): 2 What type of physical activity do you participate in: walking, bicycling and other Details: Active during day, skiing, isometric Duration: 60-90 minutes/day Frequency: daily Jerrica/Buddhism: Orthodoxy Seatbelt use: always Helmet use: Yes Helmet use: always Drive intox or ride w/intox commercial collections driver: No Water heater temp set <120 deg: Yes Working smoke detector in home: Yes Fire extinguisher in home: Yes Carbon monox detector in home: Yes Firearms in home: Yes Firearms unloaded and locked: Yes Do you feel safe at home: Yes Do you feel safe in your relationship?: Yes Victim of physical abuse: No Victim of emotional abuse: No Victim of sexual abuse: No Time Spent with Patient Time Spent with Patient: <45 minutes Time was spent: preparing to see the patient(eg.review tests), obtaining and/or reviewing separately otained hiistory, ordering medications,tests, procedures, referring, communicating with other health care taker, indepentently interpreting results, counseling the patient and care coordination
[2024-07-22] MEDS: Acetaminophen 500 MG TAB 1000 MG PO (16:56)
[2024-07-26 12:11] LABS: Levetiracetam 16.7 mcg/mL
== END 2024-07-22 16:55 | disposition short-term general hospital (02) | DRG 55 ==
LOC: ER 22:49 → ICU 23:14
PROVIDERS: Admitting Provider Family Medicine; Emergency Provider Emergency Medicine; PCP Nurse Practitioner Adult Health; Responsible Provider Family Medicine; Visit Provider Family Medicine
DX: C71.9 Malignant neoplasm of brain, unspecified (principal); G93.40 Encephalopathy, unspecified; E22.2 Syndrome of inappropriate secretion of antidiuretic hormone; R26.89 Other abnormalities of gait and mobility; E78.5 Hyperlipidemia, unspecified; E03.9 Hypothyroidism, unspecified; Z79.899 Other long term (current) drug therapy; G25.2 Other specified forms of tremor; R94.31 Abnormal electrocardiogram [ECG] [EKG]; M48.062 Spinal stenosis, lumbar region with neurogenic claudication; R73.01 Impaired fasting glucose; Z87.891 Personal history of nicotine dependence; Z96.652 Presence of left artificial knee joint
CPT/HCPCS: 00123; 36415; 36416; 80053; 82962; 85027; 87637; 93005; 97162; 97530; 99285; J1650; 70470; 80177; 81003; 83735; 84443; 85025; 85610; 93010; 99223; 99239; J3490